=== PATIENT | male | born 1965 | race Hispanic/Latino ===

== ENCOUNTER 2017-09-27 12:40 | Inpatient (IN) | payer MEDICARE, MEDICAID ==
[~2017-09-27 12:40] MED LIST: Heparin 1,000 UNITS/ML VIAL ONE; ISOVUE-370 76%-LOCM 1 ML ONE
[2017-09-27] MEDS ORDERED: Dextrose 5% in Water 1,000 ML IV PRN (13:50)
[2017-09-27] MEDS ORDERED: Acetaminophen 650 MG Suppository PR PRN (13:50)
[2017-09-27] MEDS ORDERED: Acetaminophen 325 MG TAB PO PRN (13:50)
[2017-09-27] MEDS ORDERED: Dextrose 50% Abboject 50 ML SYRINGE SLOW IVP PRN (13:50)
[2017-09-27] MEDS ORDERED: Bisacodyl 5 MG TAB PO PRN (13:50)
[2017-09-27] MEDS ORDERED: RENALLY ADJUST ABX IVPB PRN (13:54)
[2017-09-27] MEDS ORDERED: Vancomycin HCl 1 GM in Premix Bag 1 BAG IVPB SCH (14:00)
[2017-09-27] MEDS ORDERED: HYDROcodone/Acetaminophen 5/325 mg Tablet PO PRN (14:31)
[2017-09-27 14:33] VITALS: BMI 44.1
[2017-09-27] MEDS ORDERED: Vancomycin HCl 2.5 GM in Sodium Chloride 0.9% 500 ML IVPB SCH (15:00)
--- NOTE | 2017-09-27 16:06 | HP ---
DATE OF ADMISSION: 09/27/2017 PRIMARY CARE PROVIDER: Edi Montoya M.D. CHIEF COMPLAINT: Skin wounds. HISTORY OF PRESENT ILLNESS: Mr. Sahni is a pleasant 52-year-old gentleman who was seen at [facility] on 09/27/2017 after he was sent to the hospital by [facility] . He has a history of chronic sacral and right ischial wounds. He was last hospitalized at this [facility] in 11/2014. Since then, he has been going to Wound Care Clinic at [facility]. He reports that over the last 3 days, he has been having fevers and chills as well as bilateral lower extremity pain. He was therefore advised to follow up with Infectious Disease Service. He was seen by Dr. Mendes in the clinic today and was advised inpatient hospitalization for intravenous antibiotics. REVIEW OF SYSTEMS: All other systems reviewed and found to be negative. PAST MEDICAL HISTORY: Diabetes mellitus type 2, spina bifida, morbid obesity, chronic bilateral isch ial wound, osteomyelitis, open debridement, recurrent urinary tract infection, hypertension, gastroes ophageal reflux disease, coronary artery disease, non-ST elevation myocardial infarction, colostomy. PSYCHIATRIC HISTORY: Anxiety and depression. PAST SURGICAL HISTORY: Abdominal hernia repair, multiple I and D for decubitus ulceration, bilateral below knee amputation, urethral dilatation, colostomy. FAMILY HISTORY: Significant for several family members with diabetes mellitus, coronary artery disea se and cancer. ALLERGIES: TRAMADOL and ROCEPHIN. SOCIAL HISTORY: He smokes 1 cigar a day. He reports occasional marijuana use. He denies any alcoho l use. CURRENT MEDICATIONS: These need to be clarified, but appear to include albuterol, Coreg, Plavix, Edgar rontin, glipizide, [place], metformin, Protonix, pravastatin, Zoloft and lorazepam. PHYSICAL EXAMINATION: GENERAL: Mr. Sahni is awake and alert, not in acute distress. VITAL SIGNS: Blood pressure is 124/75, pulse 68, respiratory rate 18 and oxygen saturation 95% on ro om air. Temperature is 99.2 degrees Fahrenheit. He is morbidly obese, with a BMI of 44. EYES: No scleral icterus. No conjunctival pallor. ENT: Moist mucosal membranes. No oropharyngeal erythema or exudates. NECK: Supple, nontender, trachea is midline. RESPIRATORY: Accessory muscles of breathing are not active. Chest wall movements are symmetric bila terally. LUNGS: Clear to auscultation without wheeze, rhonchi or crepitations. CARDIOVASCULAR: S1 and S2 are heard, regular. Peripheral pulses palpable. No carotid bruit, no per icardial rub. ABDOMEN: Soft, distended, nontender, bowel sounds are heard, no hepatomegaly, no splenomegaly. NEUROLOGIC: Cranial nerves II-XII intact. MUSCULOSKELETAL: Status post bilateral below knee amputation. SKIN: He has a sacral wound as well as a wound over the right ischium. Both wounds are foul smellin g and have purulent discharge. LYMPHATIC: No cervical lymphadenopathy. PSYCHIATRIC: Normal mood, normal affect. The patient is oriented to person, place and time. LABORATORY DATA: No labs have been drawn at this time. ASSESSMENT AND PLAN: Mr. Sahni is a pleasant 52-year-old gentleman who was seen at [facility] on 09/27/2017. His problem list includes: 1. Wound infection: He will be admitted to the hospital for management of wound infection. He will be started on broad spectrum antibiotics in the form of Zosyn and vancomycin. Pharmacy will be requ ested to adjust his dosage. We will note wound cultures. We will also request Wound Care consult as well as surgical consult. PICC line is also being ordered. 2. Diabetes mellitus: I will start Accu-Cheks and insulin sliding scale. 3. Hypertension: We will resume home medications once clarified, monitor vital signs and titrate an tihypertensives as needed. 4. Coronary artery disease: Appears to be stable. Many thanks for allowing me to participate in your patient's care. Please feel free to contact me wi th any questions or concerns. LEVEL OF RISK: Moderate. LEVEL OF COMPLEXITY: Moderate.
--- NOTE | 2017-09-27 16:17 | SPC ---
SONOGRAPHIC GUIDED LEFT UPPER EXTREMITY PICC 09/27/17 HISTORY: Infection. Need for jail antibiotics. FINDINGS: After explaining the procedure and answering all questions, the left upper extremity was prepped and draped in the usual sterile fashion. Sterile technique, buffered local anesthesia, sonographic guidan ce, and a 22 gauge needle were used to carefully access the left basilic vein. Standard technique was then used to place the tip of a 5 [place] single lumen PICC at the level of the right atrium. Cathete r was flushed and secured external. Patient tolerated the procedure well and was returned in unchange d condition. FLUORO TIME: 0.1 minute. IMPRESSION: Left upper extremity PICC is ready for use. POS: [facility]
[2017-09-27 16:28] LABS: #Eosinphils 0.1 thou/uL (0.0-0.7); #Lymphocytes 2.4 thou/uL (1.20-3.40); #Monocytes 0.7 thou/uL (0.11-0.59); #Neutrophils 12.3 thou/uL (1.40-6.50); %Basophils 0.3 % (0.0-1.0); %Eosinophils 0.4 % (0.0-10.0); %Lymphocytes 15.4 % (21.0-51.0); %Monocytes 4.8 % (0.0-10.0); %Neutrophils 79.1 % (42.0-75.0); Hemoglobin 14.5 g/dL (14.0-18.0); Mean Corpuscular HGB CONC 31.7 g/dL (32.0-36.0); Mean Corpuscular Hemoglobin 26.5 pg (27.0-31.0); Mean Corpuscular Volume 83.7 fL (78.0-98.0); Mean Platelet Volume 7.6 fL (7.4-10.4); Platelet Count 231 thou/uL (130-400); RBC Distribution Width 14.5 % (11.5-14.5); Red Blood Cell (RBC) Count 5.48 mill/uL (4.70-6.10); White Blood Cell (WBC) Count 15.6 thou/uL (4.8-10.8)
[2017-09-27] MEDS: HYDROcodone/Acetaminophen 10/325 mg Tablet PO PRN ×2 (16:28→21:49)
[2017-09-27 16:51] LABS: ALT (SGPT) 10 U/L (8-55); AST (SGOT) 11 U/L (5-34); Albumin 3.7 g/dL (3.5-5.0); Alkaline Phosphatase 84 U/L (40-150); Anion Gap 12 mmol/L (10-20); BUN (Urea Nitrogen) 9 mg/dL (8.4-25.7); Bilirubin, Total 0.4 mg/dL (0.2-1.2); Calc. Creatinine Clearance 236 mL/min (70-130); Calcium 8.7 mg/dL (7.8-10.44); Carbon Dioxide 22 mmol/L (22-29); Chloride 104 mmol/L (98-107); Estimated GFR-MDRD Greater than 90; Globulin 3.3 g/dL (2.4-3.5); Glucose 140 mg/dL (70-105); Potassium 3.8 mmol/L (3.5-5.1); Sodium 134 mmol/L (136-145)
[2017-09-27] MEDS ORDERED: Piperacillin/Tazobactam 4.5 GM in Sodium Chloride 0.9% 100 ML IVPB SCH (17:00)
[2017-09-27] MEDS ORDERED: Ondansetron HCl/PF 4 MG/2 ML Vial IVP PRN (21:28)
[2017-09-27] MEDS ORDERED: Ondansetron ODT 4 MG TAB PO PRN (21:28)
[2017-09-27] MEDS: Piperacillin/Tazobactam 4.5 GM in Sodium Chloride 0.9% 100 ML IVPB SCH (21:43)
--- NOTE | 2017-09-27 22:45 | CT ---
CT ABDOMEN AND PELVIS WITH CONTRAST: 09/27/17 HISTORY: Chronic right ischial osteomyelitis. Fever. COMPARISON: CT of 2015. FINDINGS: Mild atelectasis in the lung bases. No pericardial effusion. There are open posterior elements of the lumbar spine with bulging of the thecal sac posteriorly. There is decubitus ulcer over the sacrum wi th loss of volume of the coccyx. There is a large ulcer of the right ischium with sclerosis. Chronic remodeling of both femoral head with coxa magna deformity on the right. There is abnormal sclerosis of the posterior right acetabulum and ischium. Large bowel containing ventral hernia without evidence of obstruction. No dilated loops of large or s mall bowel. The liver, spleen, pancreas, gallbladder and kidneys are all unremarkable. Punctate calcu lisha inferior pole left kidney and interpolar right kidney. IMPRESSION: 1. Likely a component of spina bifida with open posterior elements of lower lumbar spine contain ing thecal sac. 2. Chronic osteomyelitis of the right ischium. There is also abnormal right hip joint effusion w hich may reflect a component of septic arthritis. 3. Punctate bilateral renal calculi. 4. Very large left paramidline bowel containing hernia. POS: [facility]
--- NOTE | 2017-09-27 23:11 | CON ---
DATE OF CONSULTATION: 09/27/2017 REASON FOR CONSULTATION: Fever, general malaise, anorexia, worsening appearance of right chronic isc hial wound, indwelling Tyler catheter. HISTORY OF PRESENT ILLNESS: This is a 52-year-old known to us from previous visits. Last time I saw him was in 11/2014 in this hospital with a history of spina bifida and multiple complications relate d to the above including neurogenic bladder requiring catheterization of urinary tract, decubitus ulc ers, bilateral BKAs, type 2 diabetes. The patient has had initial debridement and protracted IV anti microbial therapy in 2014 with an MRI showing osteomyelitis. After that he was lost to follow up, lo oks like he had been admitted to [facility] in the past. Over the past few months has had wound care at [facility] and for the past week developed a low-grade fever, chi lls, general malaise, anorexia, and worsening drainage from the right ischial wound. I saw him in th e clinic today referred by the Wound Care Center and decided to admit him for evaluation and manageme nt. No headaches, no visual symptoms, sore throat, odynophagia, dysphagia, no cough. No chest pain, no abdominal pain, no problems with his colostomy, still carries an indwelling Tyler catheter. PAST MEDICAL HISTORY: Spina bifida with paraplegia and complications including ischial decubitus ulc ers. The one on the left side healed, the one on the right still present with worsening changes, hansel ateral BKAs, neurogenic bladder with chronic indwelling Tyler, prior UTIs, colostomy for diversion to help ulcer healing. PAST SURGICAL HISTORY: Also includes abdominal hernia repair, debridement of decubitus ulcerations, below knee amputations, urethral dilation colostomy. MEDICATIONS: Currently on Tylenol, [place], Dulcolax, dextrose, Lovenox, glucagon, insulin, Zosyn, and vancomycin. FAMILY HISTORY: Type 2 diabetes. ALLERGIES: TRAMADOL. SOCIAL HISTORY: Former smoker, has been in nursing homes before. PHYSICAL EXAMINATION: VITAL SIGNS: T-max 99.2, blood pressure 115/68, pulse 63, respirations 16-18, and O2 sat 93% to 95%. SKIN: Shows the bilateral areas of decubitus ulceration, the one on the right side still deep, I wou ld say still with stage IV with palpable bone at the base. The left side is healed. The patient has an indwelling Tyler catheter in the colostomy. The BKA stumps are okay. The patient has a PICC santiago e in place left upper extremity. No lymphadenopathy. HEENT: Ocular movements conjugate. Oral cavity with still a few teeth remaining in place. NECK: Supple, jugular vein distention. LUNGS: Symmetric clear breath sounds. HEART: S1 and S2, regular rate. No S3 or S4. ABDOMEN: Soft, nondistended, nontender. NEUROLOGIC: Nonfocal. Cognitive function appears to be intact. LABORATORY DATA: White cell count 15.6, hemoglobin 14.5, platelets 231, and 79% neutrophils. Sodium 134, creatinine 0.68. Liver profile normal. Albumin 3.7. ASSESSMENT: Spina bifida with paraplegia complications related to spina bifida associated neurologic al dysfunction, neurogenic bladder with chronic indwelling Tyler catheter in right ischial decubitus ulcer with prior I&D, protracted antimicrobial therapy. DISCUSSION: Patient has been apparently managed elsewhere and we have lost contact him for the past 3 years. Now, he presents with either reexacerbation of a right ischial decubitus ulcer with complic ations including the possibility of osteomyelitis, abscess formation in the pelvic area. The other p ossibility would be an invasive UTI associated with a Tyler catheter. Complications of the chronic c atheterization including nephrolithiasis, bladder lithiasis hydronephrosis and so on. We will procee d with a pelvis CT scan, we will add the abdomen to it, add contrast and decide on further management according to results. Start broad spectrum coverage.
[2017-09-27] MEDS ORDERED: HYDROcodone/Acetaminophen 5/325 mg Tablet PO SCH (23:30)
[2017-09-28] MEDS ORDERED: Lorazepam 0.5 MG TAB PO SCH (01:30)
[2017-09-28] MEDS: Piperacillin/Tazobactam 4.5 GM in Sodium Chloride 0.9% 100 ML IVPB SCH ×3 (04:21→19:42)
[2017-09-28 04:45] LABS: #Basophils 0.1 thou/uL (0.0-0.2); #Eosinphils 0.1 thou/uL (0.0-0.7); #Lymphocytes 2.8 thou/uL (1.20-3.40); #Monocytes 0.6 thou/uL (0.11-0.59); #Neutrophils 6.9 thou/uL (1.40-6.50); %Basophils 0.5 % (0.0-1.0); %Eosinophils 1.1 % (0.0-10.0); %Lymphocytes 26.9 % (21.0-51.0); %Monocytes 5.9 % (0.0-10.0); %Neutrophils 65.6 % (42.0-75.0); Hemoglobin 13.9 g/dL (14.0-18.0); Mean Corpuscular HGB CONC 33.2 g/dL (32.0-36.0); Mean Corpuscular Hemoglobin 27.6 pg (27.0-31.0); Mean Corpuscular Volume 83.4 fL (78.0-98.0); Mean Platelet Volume 7.6 fL (7.4-10.4); Platelet Count 205 thou/uL (130-400); RBC Distribution Width 14.3 % (11.5-14.5); Red Blood Cell (RBC) Count 5.01 mill/uL (4.70-6.10); White Blood Cell (WBC) Count 10.5 thou/uL (4.8-10.8)
[2017-09-28 05:02] LABS: Anion Gap 9 mmol/L (10-20); BUN (Urea Nitrogen) 10 mg/dL (8.4-25.7); Calc. Creatinine Clearance 244 mL/min (70-130); Calcium 8.3 mg/dL (7.8-10.44); Carbon Dioxide 25 mmol/L (22-29); Chloride 105 mmol/L (98-107); Estimated GFR-MDRD Greater than 90; Glucose 136 mg/dL (70-105); Potassium 3.7 mmol/L (3.5-5.1); Sodium 135 mmol/L (136-145)
[2017-09-28] MEDS: Enoxaparin Sodium 40 MG/0.4 ML SYRINGE SC SCH (08:55)
[2017-09-28] MEDS: HYDROcodone/Acetaminophen 10/325 mg Tablet PO PRN ×2 (08:57→23:16)
--- NOTE | 2017-09-28 09:56 | PDOC.GSCN ---
Surgery Consult: HPI - Consult details Date: 09/28/17 Time: 09:30 Reason for consult: wound care History of present illness: Patient has history of chronic right ischial wound which was last debrided in 2014. Since then patient has had wound care in [place]. Patient was seen by Dr. Mendes outpatient and inpatient care was recommended. Past week patient has had fever, chills, increased wound drainage, not feeling well. Surgery Consult: ROS - Review of Systems All systems: 10 systems reviewed and no additional complaints unless stated below. Surgery Consult: PMH Source: patient Past Medical History: Spina bifida, DM2, chronic bilateral ischial wounds, osteomyelitis, recurrent UTI with indwelling catheter, CAD, NSTEMI, colostomy Past Surgical History: I&D for decubitus ulcers, bilateral BKA, colostomy, abdominal hernia repair, urethral dilatation - Past Family History Family history: reviewed and not pertinent - Past Social History Smoking Status: Current every day smoker (1 cigar daily) Alcohol Use: none Drug Use History: marijuana Surgery Consult: Exam - Vital signs Vital signs: Vital Signs - Most Recent Temp Pulse Resp BP Pulse Ox 97.5 F L 67 20 114/68 93 L 09/28/17 07:31 09/28/17 07:31 09/28/17 07:31 09/28/17 07:31 09/28/17 07:31 - Physical Exam General: no distress, well developed, obese Eye: normal ocular movement, PERRL Respiratory: normal expansion, normal respiratory effort Abdomen: non tender, soft, bowel sounds Integumentary: other (right decubitus ulcer) Musculoskeletal: other (bilateral BKA) Surgery Consult: Meds - Medications MAR Reviewed: Yes Medications: Current Medications Acetaminophen (Tylenol) 650 mg PO Q4H PRN PRN Reason: Headache/Fever or Pain Acetaminophen (Tylenol) 650 mg IA Q4H PRN PRN Reason: Headache/Fever or Pain Hydrocodone Bitart/Acetaminophen ([place] 10/325) 1 tab PO Q4H PRN PRN Reason: Severe Pain (7-10) Last Admin: 09/28/17 08:57 Dose: 1 tab Hydrocodone Bitart/Acetaminophen ([place] 5/325) 1 tab PO Q4H PRN PRN Reason: Moderate Pain (4-6) Bisacodyl (Dulcolax) 10 mg PO DAILYPRN PRN PRN Reason: Constipation Dextrose/Water (Dextrose 50%) 25 gm SLOW IVP PRN PRN PRN Reason: Hypoglycemia Enoxaparin Sodium (Lovenox) 40 mg SC 0900 [facility] Last Admin: 09/28/17 08:55 Dose: Not Given Glucagon (Glucagon) 1 mg IM PRN PRN PRN Reason: Hypoglycemia Dextrose/Water (D5w) 1,000 mls @ 0 mls/hr IV .Q0M PRN PRN Reason: Hypoglycemia Vancomycin HCl 2 gm/ Sodium (Chloride) 500 mls @ 250 mls/hr IVPB 0400,1600 [facility] Last Admin: 09/28/17 04:56 Dose: 500 mls Piperacillin Sod/Tazobactam (Sod 4.5 gm/ Sodium Chloride) 100 mls @ 200 mls/hr IVPB 0500,1300,2100 [facility] Last Admin: 09/28/17 04:21 Dose: 100 mls Insulin Human Lispro (Humalog) 0 units SC .MILD SLIDING SCALE PRN PRN Reason: Mild Correctional Scale Miscellaneous Medication (Pharmacy To Dose) 1 each IVPB PRN PRN PRN Reason: Pharmacy to dose - Allergies Allergies/Adverse Reactions: Allergies Allergy/AdvReac Type Severity Reaction Status Date / Time ceftriaxone [From Rocephin] Allergy Verified 09/27/17 14:34 tramadol Allergy Verified 06/25/13 21:00 BROCCOLI Allergy Uncoded 06/25/13 21:00 Surgery Consult: Results - Labs Result Diagrams: 09/28/17 04:34 09/28/17 04:34 Lab results: Laboratory Results WBC 10.5 thou/uL (4.8-10.8) 09/28/17 04:34 RBC 5.01 mill/uL (4.70-6.10) 09/28/17 04:34 Hgb 13.9 g/dL (14.0-18.0) L 09/28/17 04:34 Hct 41.8 % (42.0-52.0) L 09/28/17 04:34 MCV 83.4 fL (78.0-98.0) 09/28/17 04:34 MCH 27.6 pg (27.0-31.0) 09/28/17 04:34 MCHC 33.2 g/dL (32.0-36.0) 09/28/17 04:34 RDW 14.3 % (11.5-14.5) 09/28/17 04:34 Plt Count 205 thou/uL (130-400) 09/28/17 04:34 MPV 7.6 fL (7.4-10.4) 09/28/17 04:34 Neutrophils % 65.6 % (42.0-75.0) 09/28/17 04:34 Lymphocytes % 26.9 % (21.0-51.0) 09/28/17 04:34 Monocytes % 5.9 % (0.0-10.0) 09/28/17 04:34 Eosinophils % 1.1 % (0.0-10.0) 09/28/17 04:34 Basophils % 0.5 % (0.0-1.0) 09/28/17 04:34 Neutrophils # 6.9 thou/uL (1.40-6.50) H 09/28/17 04:34 Lymphocytes # 2.8 thou/uL (1.20-3.40) 09/28/17 04:34 Monocytes # 0.6 thou/uL (0.11-0.59) H 09/28/17 04:34 Eosinophils # 0.1 thou/uL (0.0-0.7) 09/28/17 04:34 Basophils # 0.1 thou/uL (0.0-0.2) 09/28/17 04:34 Sodium 135 mmol/L (136-145) L 09/28/17 04:34 Potassium 3.7 mmol/L (3.5-5.1) 09/28/17 04:34 Chloride 105 mmol/L (98-107) 09/28/17 04:34 Carbon Dioxide 25 mmol/L (22-29) 09/28/17 04:34 Anion Gap 9 mmol/L (10-20) L 09/28/17 04:34 BUN 10 mg/dL (8.4-25.7) 09/28/17 04:34 Creatinine 0.66 mg/dL (0.6-1.3) 09/28/17 04:34 Estimated GFR (MDRD) Greater than 90 09/28/17 04:34 Glucose 136 mg/dL (70-105) H 09/28/17 04:34 POC Glucose 120 mg/dL (70-110) H 09/28/17 04:11 Calcium 8.3 mg/dL (7.8-10.44) 09/28/17 04:34 Total Bilirubin 0.4 mg/dL (0.2-1.2) 09/27/17 16:03 AST 11 U/L (5-34) 09/27/17 16:03 ALT 10 U/L (8-55) 09/27/17 16:03 Alkaline Phosphatase 84 U/L (40-150) 09/27/17 16:03 Serum Total Protein 7.0 g/dL (6.0-8.3) 09/27/17 16:03 Albumin 3.7 g/dL (3.5-5.0) 09/27/17 16:03 Globulin 3.3 g/dL (2.4-3.5) 09/27/17 16:03 Albumin/Globulin Ratio 1.1 g/dL (1.2-2.2) L 09/27/17 16:03 Surgery Consult: A/P - Plan Plan: 52 year old male with history of chronic decubitus ulcers, bilateral BKA, spina bifida presents with worsening right ischial ulcer. Worsening despite outpatient therapy and now receiving IV broad spectrum antibiotics. Continue per Dr. Mendes recommendations. Wound care consulted. Patient would benefit from surgical intervention. Plan for I&D tomorrow. NPO after midnight. Patient was seen and examined by Dr. Pickard who formulated the plan as noted above.
[2017-09-28] MEDS ORDERED: Morphine 4 MG/ML Carpuject SLOW IVP PRN (10:50)
[2017-09-28] MEDS ORDERED: Morphine 4 MG/ML VIAL IV PRN (11:27)
--- NOTE | 2017-09-28 12:21 | PDOC.PN ---
- Subjective Encounter Start Date: 09/28/17 Encounter Start Time: 08:50 Patient seen and examined. No new complaints. No overnight events his pain is not controlled with current treatment - Objective Resuscitation Status: Resuscitation Status FULL:Full Resuscitation MAR Reviewed: Yes Vital Signs & Weight: Vital Signs (12 hours) Temp Pulse Resp BP Pulse Ox 09/28/17 11:31 98.2 F 61 20 101/63 93 L 09/28/17 08:00 97.5 F L 67 20 95 09/28/17 07:31 97.5 F L 67 20 114/68 93 L 09/28/17 04:08 97.9 F 58 L 16 105/68 93 L Weight Weight 290 lb Result Diagrams: 09/28/17 04:34 09/28/17 04:34 Additional Labs: Accuchecks 09/28/17 09/28/17 09/27/17 11:31 04:11 19:34 POC Glucose 150 H 120 H 205 H 09/27/17 16:32 POC Glucose 129 H Radiology Reviewed by me: Yes Phys Exam - Physical Examination Constitutional: NAD HEENT: PERRLA, moist MMs, sclera anicteric Neck: no JVD, supple Respiratory: no wheezing, no rales, no rhonchi Cardiovascular: RRR, no significant murmur, no rub Gastrointestinal: soft, non-tender, no distention, positive bowel sounds colostomy+, martin+, ventral hernia bilateral BKA Neurological: non-focal Lymphatic: no nodes Psychiatric: normal affect Skin: no rash, normal turgor Dx/Plan (1) Wound infection Code(s): T14.8XXA - OTHER INJURY OF UNSPECIFIED BODY REGION, INITIAL ENCOUNTER; L08.9 - LOCAL INFECTION OF THE SKIN AND SUBCUTANEOUS TISSUE, UNSP Status: Acute (2) Amputation of both lower extremities Code(s): S88.911A - COMPLETE TRAUMATIC AMPUTATION OF R LOW LEG, LEVEL UNSP, INIT ; S88.912A - COMPLETE TRAUMATIC AMPUTATION OF L LOW LEG, LEVEL UNSP, INIT Status: Chronic (3) Anxiety and depression Code(s): F41.9 - ANXIETY DISORDER, UNSPECIFIED; F32.9 - MAJOR DEPRESSIVE DISORDER, SINGLE EPISODE, UNSPECIFIED Status: Chronic (4) CAD (coronary artery disease) Code(s): I25.10 - ATHSCL HEART DISEASE OF [place] CORONARY ARTERY W/O ANG PCTRS Status: Chronic (5) Colostomy in place Code(s): Z93.3 - COLOSTOMY STATUS Status: Chronic (6) Diabetes type 2, controlled Code(s): E11.9 - TYPE 2 DIABETES MELLITUS WITHOUT COMPLICATIONS Status: Chronic (7) Morbid obesity with BMI of 40.0-44.9, adult Code(s): E66.01 - MORBID (SEVERE) OBESITY DUE TO EXCESS CALORIES; Z68.41 - BODY MASS INDEX (BMI) 40.0-44.9, ADULT Status: Chronic (8) Neurogenic bladder Code(s): N31.9 - NEUROMUSCULAR DYSFUNCTION OF BLADDER, UNSPECIFIED Status: Chronic (9) Osteomyelitis Code(s): M86.9 - OSTEOMYELITIS, UNSPECIFIED Status: Chronic Comment: right ischium (10) Spina bifida Code(s): Q05.9 - SPINA BIFIDA, UNSPECIFIED Status: Chronic - Plan cont current plan of care, continue antibiotics * medication reviewed as below * symptomatic treatment * add morphin for pain control * wound care * tomorrow plan for I & D * continue vancomycin and zosyn * ID and surgeon on case * home medication reconciled. Review of Systems - Review of Systems Eyes: negative: Pain, Vision Change, Conjunctivae Inflammation, Eyelid Inflammation, Redness, Other ENT: negative: Ear Pain, Ear Discharge, Nose Pain, Nose Discharge, Nose Congestion, Mouth Pain, Mouth Swelling, Throat Pain, Throat Swelling, Other Respiratory: negative: Cough, Dry, Shortness of Breath, Hemoptysis, SOB with Excertion, Pleuritic Pain, Sputum, Wheezing Cardiovascular: negative: chest pain, palpitations, orthopnea, paroxysmal nocturnal dyspnea, edema, light headedness, other Gastrointestinal: negative: Nausea, Vomiting, Abdominal Pain, Diarrhea, Constipation, Melena, Hematochezia, Other Genitourinary: negative: Dysuria, Frequency, Incontinence, Hematuria, Retention , Other Skin: negative: Rash, Lesions, Guy, Bruising, Other - Medications/Allergies Allergies/Adverse Reactions: Allergies Allergy/AdvReac Type Severity Reaction Status Date / Time ceftriaxone [From Rocephin] Allergy Verified 09/27/17 14:34 tramadol Allergy Verified 06/25/13 21:00 BROCCOLI Allergy Uncoded 06/25/13 21:00 Medications: Current Medications Acetaminophen (Tylenol) 650 mg PO Q4H PRN PRN Reason: Headache/Fever or Pain Acetaminophen (Tylenol) 650 mg DC Q4H PRN PRN Reason: Headache/Fever or Pain Hydrocodone Bitart/Acetaminophen ([place] 10/325) 1 tab PO Q4H PRN PRN Reason: Severe Pain (7-10) Last Admin: 09/28/17 08:57 Dose: 1 tab Hydrocodone Bitart/Acetaminophen ([place] 5/325) 1 tab PO Q4H PRN PRN Reason: Moderate Pain (4-6) Hydrocodone Bitart/Acetaminophen ([place] 10/325) 2 tab PO Q6H PRN PRN Reason: Moderate to Severe Pain (6-10) Bisacodyl (Dulcolax) 10 mg PO DAILYPRN PRN PRN Reason: Constipation Carvedilol (Coreg) 3.125 mg PO BID [facility] Clopidogrel Bisulfate (Plavix) 75 mg PO DAILY [facility] Dextrose/Water (Dextrose 50%) 25 gm SLOW IVP PRN PRN PRN Reason: Hypoglycemia Docusate Calcium (Surfak) 240 mg PO BID [facility] Enoxaparin Sodium (Lovenox) 40 mg SC 0900 [facility] Last Admin: 09/28/17 08:55 Dose: Not Given Gabapentin (Neurontin) 300 mg PO BID [facility] Glipizide (Glucotrol) 5 mg PO BID-AC [facility] Glucagon (Glucagon) 1 mg IM PRN PRN PRN Reason: Hypoglycemia Dextrose/Water (D5w) 1,000 mls @ 0 mls/hr IV .Q0M PRN PRN Reason: Hypoglycemia Vancomycin HCl 2 gm/ Sodium (Chloride) 500 mls @ 250 mls/hr IVPB 0400,1600 [facility] Last Admin: 09/28/17 04:56 Dose: 500 mls Piperacillin Sod/Tazobactam (Sod 4.5 gm/ Sodium Chloride) 100 mls @ 200 mls/hr IVPB 0500,1300,2100 [facility] Last Admin: 09/28/17 04:21 Dose: 100 mls Insulin Glargine 10 units/ (Miscellaneous Medication) 0.1 mls @ 0 mls/hr SC BID [facility] Insulin Human Lispro (Humalog) 0 units SC .MILD SLIDING SCALE PRN PRN Reason: Mild Correctional Scale Lorazepam (Ativan) 1 mg PO TID [facility] Miscellaneous Medication (Pharmacy To Dose) 1 each IVPB PRN PRN PRN Reason: Pharmacy to dose Morphine Sulfate (Morphine) 4 mg SLOW IVP Q4H PRN PRN Reason: Pain Last Admin: 09/28/17 11:50 Dose: 4 mg Pantoprazole Sodium (Protonix) 40 mg PO DAILY [facility] Saccharomyces Boulardii (Florastor) 250 mg PO DAILY [facility] Sertraline HCl (Zoloft) 100 mg PO HS [facility]
--- NOTE | 2017-09-28 13:46 | PRG ---
DATE OF SERVICE: 09/28/2017 SUBJECTIVE: Feel a little better. No headaches. No shortness of breath or abdominal pain. OBJECTIVE: VITAL SIGNS: Temperature max 98.2-99.2, blood pressure 101/63, pulse 61, and O2 saturation to 93% to 95%. GENERAL: Appears no distress. LUNGS: Clear. CARDIOVASCULAR: S1 and S2, regular rate. ABDOMEN: Soft. Colostomy appears well. PELVIS: Some pain on range of motion of the right hip, the wound is about the same. LABORATORY DATA: White cell count is 15.6, down to 10.5, hemoglobin 13.9, platelets 205. Neutrophil percentage down from 79% to 65%. Chemistry with a sodium of 135, creatinine 0.66. Liver profile no rmal. Microbiology with group B strep from the ulcer, two other organisms as well. Urine culture gr am negative kin. For some reason urinalysis was not done. Abdomen and pelvis CT shows large ulcer of the right ischium with sclerosis, chronic remodeling of th e femoral head. Abnormal right hip joint effusion, which may reflect septic arthritis. ASSESSMENT AND DISCUSSION: Spina bifida with chronic paraplegia with neurogenic bladder, indwelling Tyler catheter, and chronic bilateral decubitus ulcers with the one on the right side more refractory with previous surgical debridements protracted antimicrobial therapy. Now, patient presents with ex acerbation of inflammatory process either secondary to an invasive urinary tract infection or from ex acerbation of the stage IV right ischial decubitus ulcer, possibility of infection of the right hip i s considered as well. At this point, we will request guided aspirate of the right hip for cultures a nd continue antimicrobial therapy. After surgical evaluation, then we will decide if the right hip n eed to be washed or just treated with antimicrobials for a protracted period of time, as well as the decubitus ulcer associated ischial osteomyelitis. The ischial findings could be residual from the pr evious infections.
[2017-09-28] MEDS: glipiZIDE 5 MG TAB PO SCH (15:49)
[2017-09-28] MEDS: Lorazepam 1 MG TAB PO SCH ×2 (15:49→19:41)
--- NOTE | 2017-09-28 16:10 | RAD ---
FLUOROSCOPIC GUIDED RIGHT HIP JOINT ASPIRATION 09/28/17 HISTORY: Abnormal appearance of right hip joint on CT exam on 09/27/17. Hip aspiration was requested. Patient h as fever. FLUOROSCOPY: Total fluoroscopy time is 0.5 minutes. Total dose of 11.61 Gy*cm2. TECHNIQUE: After informed consent was obtained, the patient was placed on the fluoroscopy table in the supine po sition. An area was marked overlying the region of the right femoral neck. The area was meticulously prepped and draped in the usual sterile fashion. Skin and subcutaneous tissues were infiltrated with buffered 1% lidocaine for local anesthesia. A 22 gauge spinal needle was then advanced to the superio r aspect of the right hip joint in region of abnormality on CT exam. However, no joint fluid was able to be aspirated. Needle was then redirected and positioned at the femoral head and neck junction at the level of the central aspect of the femoral neck. A scant amount of fluid was able to be aspirate d. No additional fluid was able to be aspirated. An approximately 1 mL of normal saline was injected into the joint space and fluid was then aspirated. Each specimen was sent for labs. Inner stylet was replaced. The needle was removed. Hemostasis was achieved with direct pressure. Patient tolerated the procedure well and without immediate complication. IMPRESSION: Right hip joint aspiration utilizing fluoroscopic guidance yielded only scant amount of fluid. Pathol ant is current pending. POS: DOMINGO
[2017-09-28] MEDS: HumaLOG 300 UNITS/3 ML VIAL SC PRN (17:45)
[2017-09-28] MEDS: Docusate Calcium (SURFAK) 240 MG CAP PO SCH (19:41)
[2017-09-28] MEDS: Gabapentin 300 MG CAP PO SCH (19:41)
[2017-09-28] MEDS: Carvedilol 3.125 MG TAB PO SCH (19:42)
[2017-09-28] MEDS: Insulin Glargine 10 UNITS in Pre-Filled Syringe 1 EACH SC SCH (19:47)
[2017-09-29 03:54] LABS: Vancomycin, Trough 17.4 ug/mL
[2017-09-29] MEDS: Piperacillin/Tazobactam 4.5 GM in Sodium Chloride 0.9% 100 ML IVPB SCH ×3 (04:37→20:21)
[2017-09-29] MEDS: HYDROcodone/Acetaminophen 10/325 mg Tablet PO PRN ×2 (04:39→23:41)
[2017-09-29] MEDS: glipiZIDE 5 MG TAB PO SCH ×2 (07:40→16:57)
[2017-09-29] MEDS: Carvedilol 3.125 MG TAB PO SCH ×2 (08:49→20:20)
[2017-09-29] MEDS: Enoxaparin Sodium 40 MG/0.4 ML SYRINGE SC SCH (08:50)
[2017-09-29] MEDS: Insulin Glargine 10 UNITS in Pre-Filled Syringe 1 EACH SC SCH ×2 (08:50→20:20)
[2017-09-29] MEDS: Docusate Calcium (SURFAK) 240 MG CAP PO SCH ×2 (08:50→20:20)
[2017-09-29] MEDS: Gabapentin 300 MG CAP PO SCH ×2 (08:50→20:20)
[2017-09-29] MEDS: Clopidogrel Bisulfate 75 MG TAB PO SCH (08:50)
[2017-09-29] MEDS: Lorazepam 1 MG TAB PO SCH ×3 (08:51→20:20)
[2017-09-29] MEDS: Saccharomyces boulardii 250 MG CAP PO SCH (08:51)
--- NOTE | 2017-09-29 10:17 | PDOC.PN ---
- Subjective Encounter Start Date: 09/29/17 Encounter Start Time: 08:50 Patient seen and examined. No new complaints. No overnight events pain is controlled with current pain regimen - Objective Resuscitation Status: Resuscitation Status FULL:Full Resuscitation MAR Reviewed: Yes Vital Signs & Weight: Vital Signs (12 hours) Temp Pulse Resp BP Pulse Ox 09/29/17 07:44 97.8 F 55 L 18 101/61 93 L 09/29/17 05:22 98 F 58 L 18 95/59 L 93 L Weight Admit Weight 290 lb Weight 290 lb I&O: 09/28/17 09/29/17 09/30/17 06:59 06:59 06:59 Intake Total 700 Output Total 1400 Balance -700 Result Diagrams: 09/28/17 04:34 09/28/17 04:34 Additional Labs: Accuchecks 09/29/17 09/28/17 09/28/17 05:37 19:47 16:39 POC Glucose 104 121 H 205 H 09/28/17 11:31 POC Glucose 150 H Phys Exam - Physical Examination Constitutional: NAD HEENT: PERRLA, moist MMs, sclera anicteric Neck: no JVD, supple Respiratory: no wheezing, no rales, no rhonchi Cardiovascular: RRR, no significant murmur, no rub Gastrointestinal: soft, non-tender, no distention, positive bowel sounds colostomy+, ventral hernia+, martin+ bilateral BKA Neurological: moves all 4 limbs Lymphatic: no nodes Psychiatric: normal affect, A&O x 3 Skin: no rash, normal turgor Dx/Plan (1) Wound infection Code(s): T14.8XXA - OTHER INJURY OF UNSPECIFIED BODY REGION, INITIAL ENCOUNTER; L08.9 - LOCAL INFECTION OF THE SKIN AND SUBCUTANEOUS TISSUE, UNSP Status: Acute (2) Amputation of both lower extremities Code(s): S88.911A - COMPLETE TRAUMATIC AMPUTATION OF R LOW LEG, LEVEL UNSP, INIT ; S88.912A - COMPLETE TRAUMATIC AMPUTATION OF L LOW LEG, LEVEL UNSP, INIT Status: Chronic (3) Anxiety and depression Code(s): F41.9 - ANXIETY DISORDER, UNSPECIFIED; F32.9 - MAJOR DEPRESSIVE DISORDER, SINGLE EPISODE, UNSPECIFIED Status: Chronic (4) CAD (coronary artery disease) Code(s): I25.10 - ATHSCL HEART DISEASE OF [place] CORONARY ARTERY W/O ANG PCTRS Status: Chronic (5) Colostomy in place Code(s): Z93.3 - COLOSTOMY STATUS Status: Chronic (6) Diabetes type 2, controlled Code(s): E11.9 - TYPE 2 DIABETES MELLITUS WITHOUT COMPLICATIONS Status: Chronic (7) Morbid obesity with BMI of 40.0-44.9, adult Code(s): E66.01 - MORBID (SEVERE) OBESITY DUE TO EXCESS CALORIES; Z68.41 - BODY MASS INDEX (BMI) 40.0-44.9, ADULT Status: Chronic (8) Neurogenic bladder Code(s): N31.9 - NEUROMUSCULAR DYSFUNCTION OF BLADDER, UNSPECIFIED Status: Chronic (9) Osteomyelitis Code(s): M86.9 - OSTEOMYELITIS, UNSPECIFIED Status: Chronic Comment: right ischium (10) Spina bifida Code(s): Q05.9 - SPINA BIFIDA, UNSPECIFIED Status: Chronic (11) UTI (urinary tract infection) due to urinary indwelling catheter Code(s): T83.511A - I/I REACT D/T INDWELLING URETHRAL CATHETER, INIT; N39.0 - URINARY TRACT INFECTION, SITE NOT SPECIFIED Status: Acute - Plan cont current plan of care, continue antibiotics * continue vancomycin and zosyn * today plan for surgical debridement as per surgeon * pain controlled * wound care * final antibiotics will defer to ID team. Review of Systems - Review of Systems Eyes: negative: Pain, Vision Change, Conjunctivae Inflammation, Eyelid Inflammation, Redness, Other ENT: negative: Ear Pain, Ear Discharge, Nose Pain, Nose Discharge, Nose Congestion, Mouth Pain, Mouth Swelling, Throat Pain, Throat Swelling, Other Respiratory: negative: Cough, Dry, Shortness of Breath, Hemoptysis, SOB with Excertion, Pleuritic Pain, Sputum, Wheezing Cardiovascular: negative: chest pain, palpitations, orthopnea, paroxysmal nocturnal dyspnea, edema, light headedness, other Gastrointestinal: negative: Nausea, Vomiting, Abdominal Pain, Diarrhea, Constipation, Melena, Hematochezia, Other Genitourinary: negative: Dysuria, Frequency, Incontinence, Hematuria, Retention , Other Musculoskeletal: negative: Neck Pain, Shoulder Pain, Arm Pain, Back Pain, Hand Pain, Leg Pain, Foot Pain, Other - Medications/Allergies Allergies/Adverse Reactions: Allergies Allergy/AdvReac Type Severity Reaction Status Date / Time ceftriaxone [From Rocephin] Allergy Verified 09/27/17 14:34 tramadol Allergy Verified 06/25/13 21:00 BROCCOLI Allergy Uncoded 06/25/13 21:00 Medications: Current Medications Acetaminophen (Tylenol) 650 mg PO Q4H PRN PRN Reason: Headache/Fever or Pain Acetaminophen (Tylenol) 650 mg UT Q4H PRN PRN Reason: Headache/Fever or Pain Hydrocodone Bitart/Acetaminophen ([place] 10/325) 1 tab PO Q4H PRN PRN Reason: Severe Pain (7-10) Last Admin: 09/28/17 08:57 Dose: 1 tab Hydrocodone Bitart/Acetaminophen ([place] 5/325) 1 tab PO Q4H PRN PRN Reason: Moderate Pain (4-6) Hydrocodone Bitart/Acetaminophen ([place] 10/325) 2 tab PO Q6H PRN PRN Reason: Moderate to Severe Pain (6-10) Last Admin: 09/29/17 04:39 Dose: 2 tab Bisacodyl (Dulcolax) 10 mg PO DAILYPRN PRN PRN Reason: Constipation Carvedilol (Coreg) 3.125 mg PO BID [facility] Last Admin: 09/29/17 08:49 Dose: Not Given Clopidogrel Bisulfate (Plavix) 75 mg PO DAILY [facility] Last Admin: 09/29/17 08:50 Dose: Not Given Dextrose/Water (Dextrose 50%) 25 gm SLOW IVP PRN PRN PRN Reason: Hypoglycemia Docusate Calcium (Surfak) 240 mg PO BID [facility] Last Admin: 09/29/17 08:50 Dose: Not Given Enoxaparin Sodium (Lovenox) 40 mg SC 0900 [facility] Last Admin: 09/29/17 08:50 Dose: Not Given Gabapentin (Neurontin) 300 mg PO BID [facility] Last Admin: 09/29/17 08:50 Dose: Not Given Glipizide (Glucotrol) 5 mg PO BID-AC [facility] Last Admin: 09/29/17 07:40 Dose: Not Given Glucagon (Glucagon) 1 mg IM PRN PRN PRN Reason: Hypoglycemia Dextrose/Water (D5w) 1,000 mls @ 0 mls/hr IV .Q0M PRN PRN Reason: Hypoglycemia Vancomycin HCl 2 gm/ Sodium (Chloride) 500 mls @ 250 mls/hr IVPB 0400,1600 [facility] Last Admin: 09/29/17 05:11 Dose: 500 mls Piperacillin Sod/Tazobactam (Sod 4.5 gm/ Sodium Chloride) 100 mls @ 200 mls/hr IVPB 0500,1300,2100 [facility] Last Admin: 09/29/17 04:37 Dose: 100 mls Insulin Glargine 10 units/ (Miscellaneous Medication) 0.1 mls @ 0 mls/hr SC BID [facility] Last Admin: 09/29/17 08:50 Dose: Not Given Insulin Human Lispro (Humalog) 0 units SC .MILD SLIDING SCALE PRN PRN Reason: Mild Correctional Scale Last Admin: 09/28/17 17:45 Dose: 3 unit Lorazepam (Ativan) 1 mg PO TID [facility] Last Admin: 09/29/17 08:51 Dose: Not Given Miscellaneous Medication (Pharmacy To Dose) 1 each IVPB PRN PRN PRN Reason: Pharmacy to dose Morphine Sulfate (Morphine) 4 mg SLOW IVP Q4H PRN PRN Reason: Pain Last Admin: 09/29/17 08:46 Dose: 4 mg Pantoprazole Sodium (Protonix) 40 mg PO DAILY [facility] Last Admin: 09/29/17 08:51 Dose: Not Given Saccharomyces Boulardii (Florastor) 250 mg PO DAILY [facility] Last Admin: 09/29/17 08:51 Dose: Not Given Sertraline HCl (Zoloft) 100 mg PO HS [facility] Last Admin: 09/28/17 19:41 Dose: 100 mg
[2017-09-29] MEDS ORDERED: PROPOFOL 200 MG/20 ML VIAL ONE (11:20)
[2017-09-29] MEDS ORDERED: Ondansetron HCl/PF 4 MG/2 ML Vial ONE (11:20)
[2017-09-29] MEDS ORDERED: Lidocaine 1% PF 5 ML VIAL ONE (11:20)
[2017-09-29] MEDS ORDERED: Glycopyrrolate 0.2 MG/ML 5 ML SYRINGE ONE (11:20)
[2017-09-29] MEDS ORDERED: Fentanyl 100 MCG/2 ML VIAL ONE ×3 (11:55→13:29)
--- NOTE | 2017-09-29 13:19 | OP ---
DATE OF PROCEDURE: 09/29/2017 PREOPERATIVE DIAGNOSES: 1. History of spina bifida status post-colostomy. 2. Morbid obesity. 3. Sacral and bilateral gluteal fold decubitus ulcer. POSTOPERATIVE DIAGNOSES: 1. History of spina bifida status post-colostomy. 2. Morbid obesity. 3. Sacral and bilateral gluteal fold decubitus ulcer. PROCEDURES PERFORMED: 1. Examination under anesthesia. 2. Placement of wet to dry dressing. SURGEON: Marvin Pickard D.O. ANESTHESIA: General endotracheal. ESTIMATED BLOOD LOSS: None. INDICATIONS FOR PROCEDURE: This is a 52-year-old morbidly obese man with history of diabetes mellitu s and spina bifida. The patient is status post colostomy. He has a longstanding chronic wound infec tion in the sacrum and bilateral gluteal fold. Examined is at bedside and due to patient's body habi tus and difficulty with positioning, the patient was brought to the operating room for examination un claudine anesthesia for possible excisional debridement of the decubitus ulcers. FINDINGS: Consistent with a granulating wound with no necrosis or purulence. The sacral wound is sh allow with good granulation base. The bilateral gluteal fold wound tunnels; however, the base is als o clean and no gross purulence. DESCRIPTION OF PROCEDURE: Informed consent obtained from the patient, who was brought to the operati ng room and placed in supine position. General anesthesia was initiated, following which the patient was placed in a lateral recumbent position. I examined both wounds. The sacral wound measures 5 cm x 7 cm with a 1 cm depth. The base is 100% granulated. No gross purulence noted. The bilateral gl uteal fold wound tunnels to approximately 8 cm, although the wound base on examination did not have a ny gross purulence or necrosis. Both wounds were individually packed with saline saturated Kerlix. Mepilex was applied over this. The patient tolerated this procedure without any apparent complicatio n and was returned to recovery room in satisfactory condition.
[2017-09-29] MEDS ORDERED: Promethazine HCl 25 MG/ML VIAL IM PRN (13:24)
[2017-09-29] MEDS ORDERED: Ondansetron HCl/PF 4 MG/2 ML Vial IVP PRN (13:24)
[2017-09-29] MEDS ORDERED: Promethazine HCl 25 MG/ML VIAL SLOW IVP PRN (13:24)
--- NOTE | 2017-09-29 22:32 | PRG ---
DATE OF SERVICE: 09/29/2017 SUBJECTIVE: Feeling better, but his appetite is back. No respiratory symptoms. PHYSICAL EXAMINATION: VITAL SIGNS: Normal. GENERAL: He is afebrile, awake, alert, oriented. LUNGS: Clear. HEART: S1, S2, regular rate. ABDOMEN: Soft, apparently did not have anything for debridement. LABORATORY DATA: White cell count down to 10.5, hemoglobin normal. Chemistry is unremarkable except for mild hyponatremia. Cultures grew B Strep and gram negative kin, has serratia from and uri ne culture broadly susceptible. ASSESSMENT AND DISCUSSION: Spina bifida, chronic paraplegia, neurogenic bladder, indwelling Tyler ca theter, chronic bilateral decubitus ulcer with exacerbation of drainage on the right side with pain i n the inflammatory process exacerbation. The plan is to continue antimicrobial therapy with Zosyn, I nvanz or meropenem. The disposition will depend on casework supervisor's decision as to what his options wo uld be in terms of a swing bed or rehabilitation/fpc.
[2017-09-30] MEDS: Piperacillin/Tazobactam 4.5 GM in Sodium Chloride 0.9% 100 ML IVPB SCH ×3 (04:01→20:32)
[2017-09-30] MEDS: Insulin Glargine 10 UNITS in Pre-Filled Syringe 1 EACH SC SCH ×2 (09:24→20:35)
[2017-09-30] MEDS: Carvedilol 3.125 MG TAB PO SCH ×2 (09:25→20:30)
[2017-09-30] MEDS: Docusate Calcium (SURFAK) 240 MG CAP PO SCH (09:25)
[2017-09-30] MEDS: Enoxaparin Sodium 40 MG/0.4 ML SYRINGE SC SCH (09:25)
[2017-09-30] MEDS: glipiZIDE 5 MG TAB PO SCH ×2 (09:25→16:45)
[2017-09-30] MEDS: Gabapentin 300 MG CAP PO SCH ×2 (09:25→20:31)
[2017-09-30] MEDS: Saccharomyces boulardii 250 MG CAP PO SCH (09:25)
[2017-09-30] MEDS: Lorazepam 1 MG TAB PO SCH ×3 (09:26→20:31)
[2017-09-30] MEDS: Clopidogrel Bisulfate 75 MG TAB PO SCH (09:26)
[2017-09-30] MEDS: HumaLOG 300 UNITS/3 ML VIAL SC PRN (13:06)
[2017-09-30] MEDS: HYDROcodone/Acetaminophen 10/325 mg Tablet PO PRN ×2 (13:11→20:31)
--- NOTE | 2017-09-30 18:01 | PDOC.PN ---
- Subjective Encounter Start Date: 09/30/17 Encounter Start Time: 11:00 Patient seen and examined for wound infection. No fever/chills. No new complaints. No overnight events - Objective Resuscitation Status: Resuscitation Status FULL:Full Resuscitation MAR Reviewed: Yes Vital Signs & Weight: Vital Signs (12 hours) Temp Pulse Resp BP Pulse Ox 09/30/17 16:00 98.6 F 57 L 18 115/64 92 L 09/30/17 11:12 98.1 F 60 16 104/63 95 09/30/17 09:48 98.1 F 58 L 16 98 09/30/17 07:52 98.1 F 58 L 16 117/68 98 Weight Admit Weight 290 lb Weight 290 lb I&O: 09/29/17 09/30/17 10/01/17 06:59 06:59 06:59 Intake Total 700 680 860 Output Total 1400 1999 1400 Balance -700 -1320 -540 Result Diagrams: 09/28/17 04:34 09/28/17 04:34 Additional Labs: Accuchecks 09/30/17 09/30/17 09/30/17 16:12 11:11 04:53 POC Glucose 96 164 H 90 09/29/17 20:02 POC Glucose 153 H Phys Exam - Physical Examination Constitutional: NAD Respiratory: no wheezing, no rhonchi Cardiovascular: RRR, no rub Gastrointestinal: soft, non-tender, positive bowel sounds Neurological: moves all 4 limbs Dx/Plan - Plan DVT proph w/lovenox IMPRESSION: 1. Infected pressure ulcer 2. Morbid Obesity BMI 44.1 3. Chronic paraplegia/Spina bifida 4. HTN 5. DM2 - on Sliding scale/Glipizide 6. Other issues per previous notes PLAN: Cont Zosyn Cont Wound care SNF Eval in progress AM labs Treat constipation Cont current meds as below Review of Systems - Review of Systems Respiratory: negative: Cough, Dry, Shortness of Breath, Hemoptysis, SOB with Excertion, Pleuritic Pain, Sputum, Wheezing Cardiovascular: negative: chest pain, palpitations, orthopnea, paroxysmal nocturnal dyspnea, edema, light headedness, other Gastrointestinal: Constipation. negative: Nausea, Vomiting, Abdominal Pain, Diarrhea, Melena, Hematochezia, Other - Medications/Allergies Allergies/Adverse Reactions: Allergies Allergy/AdvReac Type Severity Reaction Status Date / Time ceftriaxone [From Rocephin] Allergy Verified 09/27/17 14:34 tramadol Allergy Verified 06/25/13 21:00 BROCCOLI Allergy Uncoded 06/25/13 21:00 Medications: Current Medications Acetaminophen (Tylenol) 650 mg PO Q4H PRN PRN Reason: Headache/Fever or Pain Acetaminophen (Tylenol) 650 mg ND Q4H PRN PRN Reason: Headache/Fever or Pain Hydrocodone Bitart/Acetaminophen ([place] 10/325) 1 tab PO Q4H PRN PRN Reason: Severe Pain (7-10) Last Admin: 09/28/17 08:57 Dose: 1 tab Hydrocodone Bitart/Acetaminophen ([place] 5/325) 1 tab PO Q4H PRN PRN Reason: Moderate Pain (4-6) Hydrocodone Bitart/Acetaminophen ([place] 10/325) 2 tab PO Q6H PRN PRN Reason: Moderate to Severe Pain (6-10) Last Admin: 09/30/17 13:11 Dose: 2 tab Bisacodyl (Dulcolax) 10 mg PO DAILYPRN PRN PRN Reason: Constipation Carvedilol (Coreg) 3.125 mg PO BID [facility] Last Admin: 09/30/17 09:25 Dose: 3.125 mg Clopidogrel Bisulfate (Plavix) 75 mg PO DAILY [facility] Last Admin: 09/30/17 09:26 Dose: 75 mg Dextrose/Water (Dextrose 50%) 25 gm SLOW IVP PRN PRN PRN Reason: Hypoglycemia Docusate Calcium (Surfak) 240 mg PO BID [facility] Last Admin: 09/30/17 09:25 Dose: 240 mg Enoxaparin Sodium (Lovenox) 40 mg SC 0900 [facility] Last Admin: 09/30/17 09:25 Dose: 40 mg Gabapentin (Neurontin) 300 mg PO BID [facility] Last Admin: 09/30/17 09:25 Dose: 300 mg Glipizide (Glucotrol) 5 mg PO BID-AC [facility] Last Admin: 09/30/17 16:45 Dose: 5 mg Glucagon (Glucagon) 1 mg IM PRN PRN PRN Reason: Hypoglycemia Dextrose/Water (D5w) 1,000 mls @ 0 mls/hr IV .Q0M PRN PRN Reason: Hypoglycemia Piperacillin Sod/Tazobactam (Sod 4.5 gm/ Sodium Chloride) 100 mls @ 200 mls/hr IVPB 0500,1300,2100 [facility] Last Admin: 09/30/17 13:05 Dose: 100 mls Insulin Glargine 10 units/ (Miscellaneous Medication) 0.1 mls @ 0 mls/hr SC BID [facility] Last Admin: 09/30/17 09:24 Dose: 0.1 mls Insulin Human Lispro (Humalog) 0 units SC .MILD SLIDING SCALE PRN PRN Reason: Mild Correctional Scale Last Admin: 09/30/17 13:06 Dose: 2 unit Lorazepam (Ativan) 1 mg PO TID [facility] Last Admin: 09/30/17 14:20 Dose: 1 mg Miscellaneous Medication (Pharmacy To Dose) 1 each IVPB PRN PRN PRN Reason: Pharmacy to dose Morphine Sulfate (Morphine) 4 mg SLOW IVP Q4H PRN PRN Reason: Pain Last Admin: 09/30/17 15:24 Dose: 4 mg Pantoprazole Sodium (Protonix) 40 mg PO DAILY [facility] Last Admin: 09/30/17 09:25 Dose: 40 mg Saccharomyces Boulardii (Florastor) 250 mg PO DAILY [facility] Last Admin: 09/30/17 09:25 Dose: 250 mg Sertraline HCl (Zoloft) 100 mg PO HS [facility] Last Admin: 09/29/17 20:20 Dose: 100 mg
[2017-09-30] MEDS: Senokot S 8.6-50 MG TAB PO SCH (20:31)
[2017-10-01] MEDS: HYDROcodone/Acetaminophen 10/325 mg Tablet PO PRN ×3 (02:43→22:53)
[2017-10-01 05:17] LABS: #Eosinphils 0.2 thou/uL (0.0-0.7); #Lymphocytes 2.2 thou/uL (1.20-3.40); #Monocytes 0.4 thou/uL (0.11-0.59); #Neutrophils 4.6 thou/uL (1.40-6.50); %Basophils 0.5 % (0.0-1.0); %Lymphocytes 29.2 % (21.0-51.0); %Monocytes 5.4 % (0.0-10.0); %Neutrophils 61.9 % (42.0-75.0); Hemoglobin 14.3 g/dL (14.0-18.0); Mean Corpuscular HGB CONC 33.2 g/dL (32.0-36.0); Mean Corpuscular Hemoglobin 27.9 pg (27.0-31.0); Mean Platelet Volume 7.7 fL (7.4-10.4); Platelet Count 167 thou/uL (130-400); RBC Distribution Width 14.5 % (11.5-14.5); Red Blood Cell (RBC) Count 5.11 mill/uL (4.70-6.10); White Blood Cell (WBC) Count 7.4 thou/uL (4.8-10.8)
[2017-10-01] MEDS: Piperacillin/Tazobactam 4.5 GM in Sodium Chloride 0.9% 100 ML IVPB SCH ×3 (05:50→20:01)
[2017-10-01 06:15] LABS: Calcium 9.1 mg/dL (7.8-10.44); Chloride 104 mmol/L (98-107); Potassium 3.9 mmol/L (3.5-5.1); Sodium 135 mmol/L (136-145)
[2017-10-01 06:16] LABS: Glucose 131 mg/dL (70-105)
[2017-10-01 06:17] LABS: Anion Gap 10 mmol/L (10-20); Carbon Dioxide 25 mmol/L (22-29)
[2017-10-01 06:19] LABS: Calc. Creatinine Clearance 217 mL/min (70-130); Estimated GFR-MDRD Greater than 90
[2017-10-01 06:20] LABS: BUN (Urea Nitrogen) 7 mg/dL (8.4-25.7)
[2017-10-01] MEDS: glipiZIDE 5 MG TAB PO SCH ×2 (08:00→15:44)
[2017-10-01] MEDS: Clopidogrel Bisulfate 75 MG TAB PO SCH (09:03)
[2017-10-01] MEDS: Saccharomyces boulardii 250 MG CAP PO SCH (09:03)
[2017-10-01] MEDS: Gabapentin 300 MG CAP PO SCH ×2 (09:03→20:02)
[2017-10-01] MEDS: Senokot S 8.6-50 MG TAB PO SCH ×2 (09:03→20:02)
[2017-10-01] MEDS: Carvedilol 3.125 MG TAB PO SCH ×2 (09:03→20:02)
[2017-10-01] MEDS: Enoxaparin Sodium 40 MG/0.4 ML SYRINGE SC SCH (09:04)
[2017-10-01] MEDS: Lorazepam 1 MG TAB PO SCH ×3 (09:04→20:05)
[2017-10-01] MEDS: Insulin Glargine 10 UNITS in Pre-Filled Syringe 1 EACH SC SCH ×2 (09:04→20:22)
[2017-10-01] MEDS: Polyethylene Glycol 3350 17 GM Packet PO SCH (09:05)
[2017-10-01] MEDS: HumaLOG 300 UNITS/3 ML VIAL SC PRN (11:23)
--- NOTE | 2017-10-01 15:00 | PDOC.PN ---
- Subjective Encounter Start Date: 10/01/17 Encounter Start Time: 14:58 Mr. Sahni was seen today in follow-up of Infected decubitus ulcer. He does not have any new complaints. - Objective Resuscitation Status: Resuscitation Status FULL:Full Resuscitation MAR Reviewed: Yes Vital Signs & Weight: Vital Signs (12 hours) Temp Pulse Resp BP Pulse Ox 10/01/17 11:40 95 10/01/17 11:29 98.2 F 60 16 121/71 95 10/01/17 07:31 97.9 F 60 16 94 L 10/01/17 07:27 97.9 F 60 16 118/68 94 L Weight Admit Weight 290 lb Weight 290 lb I&O: 09/30/17 10/01/17 10/02/17 06:59 06:59 06:59 Intake Total 680 2290 Output Total 1999 3300 Balance -1320 -1010 Result Diagrams: 10/01/17 04:37 10/01/17 05:58 Additional Labs: Accuchecks 10/01/17 10/01/17 09/30/17 11:22 05:32 19:40 POC Glucose 153 H 107 148 H 09/30/17 16:12 POC Glucose 96 Phys Exam - Physical Examination HEENT: PERRLA Respiratory: no wheezing, no rales, no rhonchi, clear to auscultation bilateral Cardiovascular: RRR, no significant murmur, no rub Gastrointestinal: soft, non-tender, positive bowel sounds Musculoskeletal: no edema Dx/Plan (1) Decubitus ulcer of ischium Code(s): L89.309 - PRESSURE ULCER OF UNSPECIFIED BUTTOCK, UNSPECIFIED STAGE Status: Acute (2) Amputation of both lower extremities Code(s): S88.911A - COMPLETE TRAUMATIC AMPUTATION OF R LOW LEG, LEVEL UNSP, INIT ; S88.912A - COMPLETE TRAUMATIC AMPUTATION OF L LOW LEG, LEVEL UNSP, INIT Status: Chronic (3) Diabetes type 2, controlled Code(s): E11.9 - TYPE 2 DIABETES MELLITUS WITHOUT COMPLICATIONS Status: Chronic (4) Morbid obesity with BMI of 40.0-44.9, adult Code(s): E66.01 - MORBID (SEVERE) OBESITY DUE TO EXCESS CALORIES; Z68.41 - BODY MASS INDEX (BMI) 40.0-44.9, ADULT Status: Chronic (5) Neurogenic bladder Code(s): N31.9 - NEUROMUSCULAR DYSFUNCTION OF BLADDER, UNSPECIFIED Status: Chronic (6) Spina bifida Code(s): Q05.9 - SPINA BIFIDA, UNSPECIFIED Status: Chronic - Plan * Infected Right Ishial Decubitus- Continue Zosyn. He has had I&D of the area 2 days ago * DM- blood glucose is stable * HTN- blood pressure is stable * Awaiting discharge placement.
[2017-10-02] MEDS: Piperacillin/Tazobactam 4.5 GM in Sodium Chloride 0.9% 100 ML IVPB SCH ×3 (06:00→20:12)
[2017-10-02] MEDS: HYDROcodone/Acetaminophen 10/325 mg Tablet PO PRN (06:01)
[2017-10-02] MEDS: Clopidogrel Bisulfate 75 MG TAB PO SCH (08:55)
[2017-10-02] MEDS: Carvedilol 3.125 MG TAB PO SCH ×2 (08:55→20:14)
[2017-10-02] MEDS: glipiZIDE 5 MG TAB PO SCH ×2 (08:55→16:42)
[2017-10-02] MEDS: Polyethylene Glycol 3350 17 GM Packet PO SCH (08:55)
[2017-10-02] MEDS: Gabapentin 300 MG CAP PO SCH ×2 (08:56→20:14)
[2017-10-02] MEDS: Enoxaparin Sodium 40 MG/0.4 ML SYRINGE SC SCH (08:56)
[2017-10-02] MEDS: Insulin Glargine 10 UNITS in Pre-Filled Syringe 1 EACH SC SCH ×2 (08:56→20:12)
[2017-10-02] MEDS: Senokot S 8.6-50 MG TAB PO SCH ×2 (08:57→20:14)
[2017-10-02] MEDS: Saccharomyces boulardii 250 MG CAP PO SCH (08:57)
[2017-10-02] MEDS: Lorazepam 1 MG TAB PO SCH ×3 (08:57→20:15)
--- NOTE | 2017-10-02 13:11 | PDOC.PN ---
- Subjective Encounter Start Date: 10/02/17 Encounter Start Time: 13:08 Mr. Sahni was seen today in follow-up. He does not have any new complaints. - Objective Resuscitation Status: Resuscitation Status FULL:Full Resuscitation MAR Reviewed: Yes Vital Signs & Weight: Vital Signs (12 hours) Temp Pulse Resp BP Pulse Ox 10/02/17 11:37 98.7 F 61 18 123/70 91 L 10/02/17 07:47 98.5 F 56 L 18 123/71 92 L 10/02/17 03:54 98.6 F 60 16 110/58 L 92 L Weight Admit Weight 290 lb Weight 290 lb I&O: 10/01/17 10/02/17 10/03/17 06:59 06:59 06:59 Intake Total 2290 3750 Output Total 3300 5925 Balance -1010 -8255 Result Diagrams: 10/01/17 04:37 10/01/17 05:58 Additional Labs: Accuchecks 10/02/17 10/02/17 10/01/17 11:36 03:52 20:18 POC Glucose 124 H 100 147 H 10/01/17 15:44 POC Glucose 100 Phys Exam - Physical Examination HEENT: PERRLA Respiratory: no wheezing, no rales, no rhonchi, clear to auscultation bilateral Cardiovascular: RRR, no significant murmur, no rub Gastrointestinal: soft, positive bowel sounds Musculoskeletal: no edema Dx/Plan (1) Decubitus ulcer of ischium Code(s): L89.309 - PRESSURE ULCER OF UNSPECIFIED BUTTOCK, UNSPECIFIED STAGE Status: Acute (2) Amputation of both lower extremities Code(s): S88.911A - COMPLETE TRAUMATIC AMPUTATION OF R LOW LEG, LEVEL UNSP, INIT ; S88.912A - COMPLETE TRAUMATIC AMPUTATION OF L LOW LEG, LEVEL UNSP, INIT Status: Chronic (3) Diabetes type 2, controlled Code(s): E11.9 - TYPE 2 DIABETES MELLITUS WITHOUT COMPLICATIONS Status: Chronic (4) Morbid obesity with BMI of 40.0-44.9, adult Code(s): E66.01 - MORBID (SEVERE) OBESITY DUE TO EXCESS CALORIES; Z68.41 - BODY MASS INDEX (BMI) 40.0-44.9, ADULT Status: Chronic (5) Neurogenic bladder Code(s): N31.9 - NEUROMUSCULAR DYSFUNCTION OF BLADDER, UNSPECIFIED Status: Chronic (6) Spina bifida Code(s): Q05.9 - SPINA BIFIDA, UNSPECIFIED Status: Chronic - Plan * Infected Right Ishial decubitus ulcer- Continue IV Zosyn, and local wound care * Arrangements are in progress for Outpatient care * HTN- blood pressure is stable * DM- blood glucose is stable.
[2017-10-03] MEDS ORDERED: diphenhydrAMINE 25 MG CAP PO SCH (00:45)
[2017-10-03] MEDS: Piperacillin/Tazobactam 4.5 GM in Sodium Chloride 0.9% 100 ML IVPB SCH ×2 (06:02→13:18)
[2017-10-03] MEDS: HYDROcodone/Acetaminophen 10/325 mg Tablet PO PRN ×3 (06:03→13:18)
[2017-10-03] MEDS: Carvedilol 3.125 MG TAB PO SCH (08:40)
[2017-10-03] MEDS: Clopidogrel Bisulfate 75 MG TAB PO SCH (08:40)
[2017-10-03] MEDS: Senokot S 8.6-50 MG TAB PO SCH (08:40)
[2017-10-03] MEDS: glipiZIDE 5 MG TAB PO SCH ×2 (08:40→17:02)
[2017-10-03] MEDS: Saccharomyces boulardii 250 MG CAP PO SCH (08:40)
[2017-10-03] MEDS: Gabapentin 300 MG CAP PO SCH (08:41)
[2017-10-03] MEDS: Enoxaparin Sodium 40 MG/0.4 ML SYRINGE SC SCH (08:41)
[2017-10-03] MEDS: Lorazepam 1 MG TAB PO SCH ×2 (08:41→14:31)
[2017-10-03] MEDS: Insulin Glargine 10 UNITS in Pre-Filled Syringe 1 EACH SC SCH (09:58)
[2017-10-03] MEDS: Polyethylene Glycol 3350 17 GM Packet PO SCH (09:58)
--- NOTE | 2017-10-03 12:16 | PDOC.PN ---
- Subjective Encounter Start Date: 10/03/17 Encounter Start Time: 12:14 Mr. Sahni was seen today in follow-up. He does not have any new complaints. - Objective Resuscitation Status: Resuscitation Status FULL:Full Resuscitation MAR Reviewed: Yes Vital Signs & Weight: Vital Signs (12 hours) Temp Pulse Resp BP BP Pulse Ox 10/03/17 08:45 97.5 F L 59 L 18 10/03/17 08:02 98.0 F 56 L 18 134/72 92 L 10/03/17 04:00 97.5 F L 59 L 18 115/59 L 95 Weight Admit Weight 290 lb Weight 290 lb I&O: 10/02/17 10/03/17 10/04/17 06:59 06:59 06:59 Intake Total 3750 3180 Output Total 5995 4800 Balance -2175 -1620 Result Diagrams: 10/01/17 04:37 10/01/17 05:58 Additional Labs: Accuchecks 10/03/17 10/03/17 10/02/17 11:42 06:07 20:12 POC Glucose 143 H 122 H 138 H 10/02/17 16:40 POC Glucose 143 H Phys Exam - Physical Examination HEENT: PERRLA Respiratory: no wheezing, no rales, no rhonchi, clear to auscultation bilateral Cardiovascular: RRR, no significant murmur, no rub Gastrointestinal: soft, non-tender, positive bowel sounds Musculoskeletal: no edema Dx/Plan (1) Decubitus ulcer of ischium Code(s): L89.309 - PRESSURE ULCER OF UNSPECIFIED BUTTOCK, UNSPECIFIED STAGE Status: Acute (2) Amputation of both lower extremities Code(s): S88.911A - COMPLETE TRAUMATIC AMPUTATION OF R LOW LEG, LEVEL UNSP, INIT ; S88.912A - COMPLETE TRAUMATIC AMPUTATION OF L LOW LEG, LEVEL UNSP, INIT Status: Chronic (3) Diabetes type 2, controlled Code(s): E11.9 - TYPE 2 DIABETES MELLITUS WITHOUT COMPLICATIONS Status: Chronic (4) Morbid obesity with BMI of 40.0-44.9, adult Code(s): E66.01 - MORBID (SEVERE) OBESITY DUE TO EXCESS CALORIES; Z68.41 - BODY MASS INDEX (BMI) 40.0-44.9, ADULT Status: Chronic (5) Neurogenic bladder Code(s): N31.9 - NEUROMUSCULAR DYSFUNCTION OF BLADDER, UNSPECIFIED Status: Chronic (6) Spina bifida Code(s): Q05.9 - SPINA BIFIDA, UNSPECIFIED Status: Chronic - Plan * Decubitus Ulcer with Infection- he is s/p debridement- continue Zosyn * DM- blood glucose is stable. * HTN- blood pressure is stable * Awaiting placement
[2017-10-03 17:01] VITALS: BP 120/69; TEMP 98
--- NOTE | 2017-10-04 00:44 | DIS ---
DATE OF ADMISSION: 09/27/2017 DATE OF DISCHARGE: 10/03/2017 PRIMARY CARE PHYSICIAN: Dr. Edi Montoya. DISCHARGE DIAGNOSES: 1. Right ischial and sacral decubitus with infection. 2. Diabetes mellitus, type 2. 3. History of paraplegia secondary to spina bifida. 4. Morbid obesity. 5. Hypertension. 6. Gastroesophageal reflux disease. 7. Anxiety and depression. DISCHARGE MEDICATIONS: Include Zosyn 4.5 mg IV q.6 h until 11/10/2017, Florastor 250 mg daily, Zolof t 100 mg at bedtime, Protonix 40 mg daily, multivitamin once a day, Ativan 1 mg t.i.d., Lantus insuli n 20 units twice a day, [place] 10/325 mg two tablets q.6 hours as needed, Humalog as directed, glipizi de 5 mg twice a day, Neurontin 300 mg twice daily, famotidine 20 mg twice a day, docusate 240 mg 2 ta blets twice daily, Plavix 75 mg daily, carvedilol 3.125 mg twice a day. PROCEDURES DONE DURING ADMISSION: The patient had a CT scan of the abdomen and pelvis and this showe d a likely component of spina bifida with open posterior elements of the lower lumbar spine containin g the thecal sac. There was some chronic osteomyelitis of the right ischium, also abnormal right hip joint effusion which could be septic arthritis. There is a very large paramidline bile containing h ernia and bilateral renal calculi. The patient also had a joint aspiration of the right hip joint, o nly demonstrating a scant amount of aspirate and the patient had an I&D of the ischial wound under ge neral anesthesia. CODE STATUS: FULL CODE. ALLERGIES: CEFTRIAXONE and TRAMADOL as well as BROCCOLI. HOSPITAL COURSE: Mr. Sahni is a pleasant 52-year-old gentleman that has a history of paraplegia seco ndary to spina bifida. He also has a history of chronic decubitus ulcers over the past few years. Mook castellanos had [facility], but apparently had been lost to follow up. He recently was seen in Dr. Mendes' office and there he examined the wounds and felt that they were infected and advi sed that he come to the emergency room for evaluation. He was admitted, felt that the wounds were in fected and need to be evaluated. He was admitted and started on IV antibiotics. He was seen by [facility]. He underwent debridement of the wounds and Dr. Mendes recommended that he continue IV Zo syn for approximately 6 weeks and the treatment on 11/10/2017 he would also be getting a weekly CBC a nd a chemistry panel and CRP which will be sent to Dr. Mendes. The patient will be discharged to the retirement unit on 10/03/2017.
== END 2017-10-03 19:06 | DRG 592 ==
LOC: T4-A 12:40 → 2NO 10-01 09:57 → T4-A 10-01 10:12
PROVIDERS: ADMIT Family Medicine; ATTEND Family Medicine
DX: L89.154 Pressure ulcer of sacral region, stage 4 (principal); N39.0 Urinary tract infection, site not specified; T83.511A Infection and inflammatory reaction due to indwelling urethral catheter, initial encounter; Z68.41 Body mass index [BMI] 40.0-44.9, adult; M86.9 Osteomyelitis, unspecified; G82.20 Paraplegia, unspecified; L89.314 Pressure ulcer of right buttock, stage 4; E66.01 Morbid (severe) obesity due to excess calories; Q05.9 Spina bifida, unspecified; N31.9 Neuromuscular dysfunction of bladder, unspecified; Y84.6 Urinary catheterization as the cause of abnormal reaction of the patient, or of later complication, without mention of misadventure at the time of the procedure; I10 Essential (primary) hypertension; I25.10 Atherosclerotic heart disease of native coronary artery without angina pectoris; K21.9 Gastro-esophageal reflux disease without esophagitis; F41.9 Anxiety disorder, unspecified; F32.9 Major depressive disorder, single episode, unspecified; Z88.8 Allergy status to other drugs, medicaments and biological substances; Z91.018 Allergy to other foods; Z93.3 Colostomy status; Z89.512 Acquired absence of left leg below knee; Z89.511 Acquired absence of right leg below knee; Z79.899 Other long term (current) drug therapy; Z79.4 Long term (current) use of insulin; Z79.891 Long term (current) use of opiate analgesic; Z87.891 Personal history of nicotine dependence; F12.90 Cannabis use, unspecified, uncomplicated
CPT/HCPCS: 20610; 36415; 36416; 36569; 74177; 77002; 80048; 80053; 80202; 83735; 85025; 87070; 87077; 87086; 87186; 87205; 90471; 90732; C1751; G0009; J1644; J1650; J2001; J2270; J2405; J2543; J2704; J3010; J3370; J7050

== ENCOUNTER 2018-02-05 16:58 | Observation (INO) | payer MEDICARE, OTHER ==
--- NOTE | 2018-02-05 17:48 | RAD ---
ONE VIEW CHEST: History: Cough. Comparison: 11-11-14 FINDINGS: Heart is enlarged. Pulmonary vessels are prominent. Patchy interstitial opacities, without consolidat ion or mass. No pneumothorax or osseous abnormalities. IMPRESSION: Cardiomegaly. Pulmonary vascular prominence. Patchy interstitial opacities. Congestive heart failure. POS: [facility]
[2018-02-05 18:05] LABS: #Eosinphils 0.2 thou/uL (0.0-0.7); #Lymphocytes 3.1 thou/uL (1.20-3.40); #Monocytes 0.8 thou/uL (0.11-0.59); %Basophils 0.2 % (0.0-1.0); %Eosinophils 1.7 % (0.0-10.0); %Lymphocytes 21.9 % (21.0-51.0); %Monocytes 5.3 % (0.0-10.0); %Neutrophils 70.8 % (42.0-75.0); Hemoglobin 14.1 g/dL (14.0-18.0); Mean Corpuscular HGB CONC 32.4 g/dL (32.0-36.0); Mean Corpuscular Hemoglobin 27.3 pg (27.0-31.0); Mean Corpuscular Volume 84.4 fL (78.0-98.0); Mean Platelet Volume 7.5 fL (7.4-10.4); Platelet Count 245 thou/uL (130-400); RBC Distribution Width 14.5 % (11.5-14.5); Red Blood Cell (RBC) Count 5.16 mill/uL (4.70-6.10); White Blood Cell (WBC) Count 14.1 thou/uL (4.8-10.8)
[2018-02-05 18:19] LABS: ALT (SGPT) 11 U/L (8-55); AST (SGOT) 10 U/L (5-34); Albumin 3.6 g/dL (3.5-5.0); Alkaline Phosphatase 95 U/L (40-150); Anion Gap 13 mmol/L (10-20); BUN (Urea Nitrogen) 8 mg/dL (8.4-25.7); Bilirubin, Total 0.3 mg/dL (0.2-1.2); Calc. Creatinine Clearance 0 mL/min (70-130); Calcium 8.8 mg/dL (7.8-10.44); Carbon Dioxide 22 mmol/L (22-29); Chloride 101 mmol/L (98-107); Estimated GFR-MDRD Greater than 90; Globulin 3.7 g/dL (2.4-3.5); Glucose 181 mg/dL (70-105); Potassium 3.7 mmol/L (3.5-5.1); Protein, Total 7.3 g/dL (6.0-8.3); Sodium 132 mmol/L (136-145)
[2018-02-05 18:42] LABS: CKMB 2.4 ng/mL (0-6.6)
[2018-02-05] MEDS ORDERED: Azithromycin 500 MG VIAL ONE (19:43)
[2018-02-05] MEDS ORDERED: Sodium Chloride 0.9% 0 ML ONE (19:43)
[2018-02-05] MEDS ORDERED: HYDROcodone/Acetaminophen 5/325 mg Tablet ONE (20:49)
[2018-02-05 22:00] LABS: CKMB 2.3 ng/mL (0-6.6)
[2018-02-05] MEDS ORDERED: Acetaminophen 325 MG TAB PO PRN ×2 (22:50→22:54)
[2018-02-05] MEDS ORDERED: Acetaminophen 650 MG Suppository PR PRN (22:50)
[2018-02-05] MEDS ORDERED: Bisacodyl 5 MG TAB PO PRN (22:50)
[2018-02-05] MEDS ORDERED: Zolpidem Tartrate 5 MG TAB PO PRN (22:50)
[2018-02-05] MEDS ORDERED: Senokot S 8.6-50 MG TAB PO PRN (22:50)
[2018-02-05] MEDS ORDERED: Sodium Chloride 0.9% 1,000 ML IV SCH (22:54)
[2018-02-05] MEDS ORDERED: HYDROcodone/Acetaminophen 5/325 mg Tablet PO PRN ×2 (22:54)
[2018-02-05] MEDS ORDERED: Dextrose 50% Abboject 50 ML SYRINGE SLOW IVP PRN (23:03)
[2018-02-05] MEDS ORDERED: HumaLOG 300 UNITS/3 ML VIAL SC PRN (23:03)
[2018-02-05] MEDS ORDERED: Dextrose 5% in Water 1,000 ML IV PRN (23:03)
[2018-02-05] MEDS: Guaifenesin DM 100-10/5 ML UDCUP PO PRN (23:34)
[2018-02-06 01:05] LABS: CKMB 1.9 ng/mL (0-6.6)
[2018-02-06 05:25] LABS: #Eosinphils 0.3 thou/uL (0.0-0.7); #Lymphocytes 2.4 thou/uL (1.20-3.40); #Monocytes 0.7 thou/uL (0.11-0.59); #Neutrophils 7.4 thou/uL (1.40-6.50); %Basophils 0.2 % (0.0-1.0); %Eosinophils 2.4 % (0.0-10.0); %Lymphocytes 22.4 % (21.0-51.0); %Monocytes 6.4 % (0.0-10.0); %Neutrophils 68.7 % (42.0-75.0); Hemoglobin 13.4 g/dL (14.0-18.0); Mean Corpuscular HGB CONC 32.7 g/dL (32.0-36.0); Mean Corpuscular Hemoglobin 27.4 pg (27.0-31.0); Mean Corpuscular Volume 83.8 fL (78.0-98.0); Mean Platelet Volume 7.7 fL (7.4-10.4); Platelet Count 225 thou/uL (130-400); RBC Distribution Width 14.3 % (11.5-14.5); White Blood Cell (WBC) Count 10.7 thou/uL (4.8-10.8)
[2018-02-06 05:43] LABS: ALT (SGPT) 8 U/L (8-55); AST (SGOT) 8 U/L (5-34); Albumin 3.3 g/dL (3.5-5.0); Alkaline Phosphatase 94 U/L (40-150); Anion Gap 13 mmol/L (10-20); BUN (Urea Nitrogen) 11 mg/dL (8.4-25.7); Bilirubin, Total 0.3 mg/dL (0.2-1.2); Calc. Creatinine Clearance 212 mL/min (70-130); Calcium 8.9 mg/dL (7.8-10.44); Carbon Dioxide 24 mmol/L (22-29); Chloride 103 mmol/L (98-107); Estimated GFR-MDRD Greater than 90; Globulin 3.6 g/dL (2.4-3.5); Glucose 167 mg/dL (70-105); Potassium 3.6 mmol/L (3.5-5.1); Protein, Total 6.9 g/dL (6.0-8.3); Sodium 136 mmol/L (136-145)
--- NOTE | 2018-02-06 07:02 | HP ---
CHIEF COMPLAINT: Upper respiratory infection. HISTORY OF PRESENT ILLNESS: This is a 52-year-old male with past medical history of diabetes mellitus, type 2; spina bifida; right ischial decubitus; obesity; and hypertension, presenting with productive cough, generalized malaise, rhinorrhea, and nasal congestion, which have been ongoing for the past 1 week prior to this admission. The patient states that he had severe shortness of breath, which has been worse in the past 2 days. The patient also stated that he has been having hacking cough, which caused him to spit up some productive sputum. Per the patient, his symptoms have been ongoing for a week. He took NyQuil to help; however, the patient stated that the NyQuil has not completely resolved his symptoms. The patient stated that on the day of admission, he was having severe cough and shortness of breath, and he became very scared that he was not able to breathe and that prompted him to call EMS. The patient stated that he was given two DuoNeb treatments en route to the hospital. In addition to the patient's complaints, the patient is endorsing chest wall pain. The patient stated that the pain is substernal and pain always gets worsened after he coughs. The patient denies any palpitations, dizziness, headaches, abdominal pain, dysuria, hematuria, melena, or hematochezia. REVIEW OF SYSTEMS: Positive for rhinorrhea, chest pain, productive cough, and shortness of breath, otherwise as stated in the HPI. All other systems are reviewed and are negative. PAST MEDICAL HISTORY: Hyperlipidemia; coronary artery disease; spina bifida; diabetes mellitus, type 2; bilateral knee amputations; hypertension; right ischial decubitus; and obesity. PAST SURGICAL HISTORY: Spinal surgery for spina bifida, bilateral BKA, left hip colostomy, and debridement of right ischial decub. FAMILY HISTORY: Reviewed and noncontributory to this visit. PSYCHIATRIC HISTORY: Includes anxiety and depression. SOCIAL HISTORY: The patient states that he abuses marijuana, but does not do any other illicit drugs. The patient denies alcohol use, and the patient currently smokes cigars. The patient denies smoking tobacco. ALLERGIES: CEFTRIAXONE AND TRAMADOL. CURRENT MEDICATIONS: 1. Albuterol. 2. Coreg 3.125 mg. 3. Plavix 75 mg. 4. Neurontin 300 mg. 5. Glipizide 5 mg b.i.d. 6. Protonix. 7. Zoloft 100 mg. 8. Famotidine 20 mg. 9. [place]. 10. Xanax. PHYSICAL EXAMINATION: VITAL SIGNS: Blood pressure is 124/71, pulse of 75, respiratory rate of 20, and O2 saturation of 99%. CONSTITUTIONAL: The patient is in no apparent distress. The patient is speaking in full sentences. The patient is alert and oriented x3, not in acute distress. The patient smells like urine. The patient is unkempt and the patient is obese. HEENT: Normocephalic, atraumatic. Pupils are equally round and reactive to light. Extraocular movements are intact. No scleral icterus. No conjunctival pallor. The patient has bilateral nasal congestion. Pharynx, not injected. There is no tenderness at the neck. Mucous membranes are moist. NECK: Trachea is midline. Full range of motion. Supple. LUNGS: The patient has bilateral crackles that can be appreciated at the lung bases. CARDIAC: Positive S1 and S2. Regular rate and rhythm. No murmurs, no gallops, no rubs appreciated. ABDOMEN: Obese abdomen. Soft, nontender, and nondistended. The patient do have a huge hernia that is noted at the left lower quadrant. EXTREMITIES: The patient has 5/5 upper extremity strength with no edema. Lower extremities; the patient has bilateral below-knee amputations. There is no edema noted. NEUROLOGIC: Cranial nerves 2 through 12 grossly intact. No neurologic deficits noted. SKIN: Warm, dry, and intact. PSYCH: Normal affect. DIAGNOSTIC DATA: EKG showed normal sinus rhythm with a rate of 74. Chest x-ray showed cardiomegaly. Pulmonary vessels are prominent. Patchy interstitial opacities without consolidation or mass. CHF. No osseous findings. LABORATORY DATA: WBC is 14.1, hemoglobin is 14.1, hematocrit is 43.6, MCV is 84.4, and platelet count is 245. Sodium is 132, potassium is 3.2, chloride is 101, carbon dioxide of 22, anion gap of 13, BUN is 8, creatinine is 0.77, and glucose is 181. Lactic acid is 1.5. Troponin is 0.034. ASSESSMENT AND PLAN: This is a 52-year-old male being admitted for; 1. Community-acquired pneumonia. At this point, chest x-ray shows some infiltrates on imaging. At this point, we are going to start the patient on antibiotics and we are going to continue the patient on the antibiotics. We are going to give the patient DuoNeb treatments, and we are going to admit the patient and observe the patient. 2. Chest pain, rule out acute coronary syndrome. At this point, the patient's troponin is mildly elevated. We will trend the patient's troponins. We have consulted Cardiology. We will follow up with any recommendations. 3. Pleural effusions, likely due to new onset congestive heart failure. Per the patient, in the past couple of weeks, his shortness of breath has been worsened. The patient stated that any exertion makes him get shortness of breath. At this point, we have ordered an echo. We have consulted Cardiology. We will follow up on these things, and we will continue to treat the patient accordingly. 4. Hypertension, uncontrolled. We will continue the patient on p.r.n. medications to control the patient's blood pressure. We will monitor the patient closely. 5. Diabetes mellitus, type 2. We will continue to manage the patient's blood sugars. We will continue insulin sliding scale. 6. Morbid obesity. We will advise for patient to adjust his diet. 7. Deep venous thrombosis/gastrointestinal prophylaxis. Job ID: [id number]
[2018-02-06] MEDS: Guaifenesin DM 100-10/5 ML UDCUP PO PRN ×2 (08:28→21:03)
[2018-02-06] MEDS: Enoxaparin Sodium 40 MG/0.4 ML SYRINGE SC SCH (08:29)
[2018-02-06] MEDS: Furosemide 40 MG/4 ML VIAL SLOW IVP SCH (08:29)
[2018-02-06] MEDS: Famotidine 20 MG TAB PO SCH ×2 (08:29→21:02)
[2018-02-06] MEDS: Saccharomyces boulardii 250 MG CAP PO SCH (08:29)
[2018-02-06] MEDS: Clopidogrel Bisulfate 75 MG TAB PO SCH (08:29)
[2018-02-06] MEDS: Gabapentin 300 MG CAP PO SCH ×2 (08:29→21:02)
[2018-02-06] MEDS: Multivitamin W/ Minerals 1 TAB PO SCH (08:29)
[2018-02-06] MEDS: Famotidine/PF 20 mg/2ml Vial SLOW IVP SCH ×2 (08:30→21:02)
--- NOTE | 2018-02-06 08:33 | PDOC.PN ---
- Subjective Encounter Start Date: 02/06/18 Encounter Start Time: 08:30 Subjective: Resting comfortably. No complaints. Breathing is significantly improved. -: Denies any chest pain. No headaches/dizziness. No n/v. Denies any abdo pain -: Known hx of [place] associated with heavy cocaine use 10+ years ago. Wheelchair bound (hx of Spina Bifida) and s/p bilateral below the knee amputation due to dragging his legs when using his wheelchair. Occasional edema in bilateral thighs but none at this time. Bowels normal. No fevers, chills or sweats. Of note he smokes cigars every morning with coffee. Chronic cough. No hemoptysis. No known to have COPD or CHF. Not seen regularly by manufacturing quality technician. - Objective Resuscitation Status - Order Detail: 02/05/18 22:50 Resuscitation Status Routine Resuscitation Status: FULL: Full Resuscitation MAR Reviewed: Yes Vital Signs & Weight: Vital Signs (12 hours) Temp Pulse Resp BP Pulse Ox 02/06/18 07:26 98.5 F 87 20 118/56 L 97 02/06/18 07:08 99 02/06/18 07:05 74 14 99 02/06/18 01:30 94 L 02/06/18 01:28 83 16 94 L Weight Weight 294 lb I&O: 02/05/18 02/06/18 02/07/18 06:59 06:59 06:59 Intake Total 360 Output Total 1200 Balance -840 Result Diagrams: 02/06/18 05:01 02/06/18 05:01 Additional Labs: Accuchecks 02/05/18 23:38 POC Glucose 267 H Phys Exam - Physical Examination Constitutional: NAD HEENT: PERRLA, sclera anicteric, oral pharynx no lesions Neck: no nodes, no JVD, full ROM Respiratory: no wheezing, no rales, clear to auscultation bilateral Cardiovascular: RRR Gastrointestinal: soft, non-tender, no distention, positive bowel sounds Musculoskeletal: no edema Bilateral knee amputee Neurological: non-focal, normal sensation Lymphatic: no nodes Psychiatric: normal affect, A&O x 3 Skin: no rash, normal turgor Dx/Plan (1) Pneumonia Code(s): J18.9 - PNEUMONIA, UNSPECIFIED ORGANISM Status: Acute (2) Diabetes mellitus type 2 in obese Code(s): E11.69 - TYPE 2 DIABETES MELLITUS WITH OTHER SPECIFIED COMPLICATION; E66.9 - OBESITY, UNSPECIFIED Status: Chronic (3) Acute CHF Code(s): I50.9 - HEART FAILURE, UNSPECIFIED Status: Acute (4) History of [place] (myocardial infarction) Code(s): I25.2 - OLD MYOCARDIAL INFARCTION Status: Chronic (5) History of drug abuse Code(s): Z87.898 - PERSONAL HISTORY OF OTHER SPECIFIED CONDITIONS Status: Chronic - Plan cont current plan of care, continue antibiotics, DVT proph w/lovenox Awaiting Echo -: Awaiting Cardiology consultation * .
[2018-02-06] MEDS ORDERED: Acetaminophen/Codeine 30-300mg Tablet PO PRN (12:55)
[2018-02-06] MEDS: HumaLOG 300 UNITS/3 ML VIAL SC PRN ×2 (13:11→17:01)
[2018-02-06 13:56] VITALS: BMI 44.6
--- NOTE | 2018-02-06 15:50 | CON ---
DATE OF CONSULTATION: 02/06/2018 REASON FOR CONSULTATION: Heart failure and mildly elevated troponins. HISTORY OF PRESENT ILLNESS: Mr. Sahni is a very pleasant 52-year-old gentleman, who comes to the hospital for a cough. He has symptoms concerning for bronchitis, which is something that has been going lately around the city. He came in with this cough productive of green sputum. During his initial evaluation, troponins were drawn, they were in the indeterminate range at 0.03, 0.03, 0.03. BNP was normal at 84.7. Chest x-ray showed mild CHF with patchy infiltrates consistent with multilobar pneumonia. He was started on antibiotics and given IV Lasix. He did diurese a little bit and his breathing is a little bit better. He continues to have this cough. Echocardiogram was done and it was just read, EF is mildly reduced at 35% to 40% with anterior to anteroseptal hypokinesis as well as inferoseptal hypokinesis. He has a history of coronary artery disease. He was seen here in 2010 for an OR after cocaine use. He had a heart catheterization that showed an 80% obstructed first diagonal that was too small to intervene on, this was treated medically. He also has had a 50% lesion on the proximal LAD at the bifurcation with a large septal blow torch burner. This was left untreated with medications. He has not been on any aspirin or any other heart medication as he really thought that his main issue at that time was because of the cocaine and he has not done that cocaine since. He only uses marijuana pretty much on a daily basis. He denies currently any chest pain, tightness, or pressure, but he tells me now that he hears that he has noticed that for the last 6 months, he has a little bit of chest tightness and burning. His PCP gave him a PPI for this and it improved minimally, but he continues to have this and this might be just ischemia. Currently, he is pain free. PAST MEDICAL HISTORY: 1. Coronary artery disease as above. 2. Hyperlipidemia. 3. Spina bifida. 4. Type 2 diabetes. 5. Bilateral qtpur-beb-gyja amputations. 6. Hypertension. 7. Right ischial decubitus ulcer. 8. Obesity. PAST SURGICAL HISTORY: 1. Spinal surgery for spina bifida. 2. Bilateral BKAs. 3. Left hip surgery. 4. Colostomy. 5. Debridement of right ischial decubitus ulcer. OUTPATIENT MEDICATIONS: Include; 1. Albuterol. 2. Coreg 3.125 mg b.i.d. 3. Plavix 75 mg a day. 4. Neurontin 300 mg a day. 5. Glipizide 5 mg b.i.d. 6. Protonix. 7. Zoloft 100 mg a day. 8. Famotidine. 9. [place]. 10. Xanax p.r.n. ALLERGIES: CEFTRIAXONE AND TRAMADOL. SOCIAL HISTORY: Uses marijuana every day, but no other drugs. No alcohol. He smokes cigars, but not cigarettes. FAMILY HISTORY: No early coronary artery disease. REVIEW OF SYSTEMS: A 12-point review of systems was done and was found to be negative unless stated in the history of present illness. PHYSICAL EXAMINATION: VITAL SIGNS: Temperature 98.6, pulse 70, respiratory rate 20, saturating 96% on room, blood pressure 112/55. GENERAL: Awake, alert, and oriented x3. No distress. HEENT: Normocephalic and atraumatic. NECK: Supple. Short neck. LUNGS: Have expiratory wheezes. CARDIOVASCULAR: S1 and S2. No S3 or S4. No murmurs. ABDOMEN: Soft. Positive bowel sounds. EXTREMITIES: Bilateral BKA. LABORATORY DATA: Laboratory work was reviewed. CBC with a white count of 14 on admission, down to 10; hemoglobin of 13.4; hematocrit 41; platelet count 225. Chemistry was reviewed, unremarkable except for a troponin of 0.03 in 3 different times. CK-MB was normal. Albumin was 3.3. TSH was normal. BNP was normal. EKG was reviewed. Chest x-ray was reviewed. ASSESSMENT: 1. Acute on chronic systolic and diastolic heart failure. 2. Acute bronchitis. 3. Coronary artery disease. 4. Substance abuse. PLAN: 1. He is currently admitted for bronchitis, however, he has reduced ejection fraction on the echo, most likely related to his coronary artery disease. He will need risk stratification with heart catheterization, however, this is not the right time for this as he is coughing quite a bit and is unable to lay flat. We will continue IV Lasix as 40 IV daily and we will try to get him through this acute bronchitis and we will see him back in the office in 1 month to plan for outpatient cardiac catheterization. 2. As far as his heart failure medications, would continue his current Coreg dose and will add extremely low dose lisinopril at half a tablet of the 2.5 mg daily as his blood pressures is borderline currently. Thank you for letting me to participate in the care of your patient. We will follow. Job ID: [id number]
[2018-02-06] MEDS ORDERED: Azithromycin 500 MG in Sodium Chloride 0.9% 250 ML 250 ML IVPB SCH (20:00)
[2018-02-06] MEDS ORDERED: ALPRAZolam 1 MG TAB PO PRN (20:40)
[2018-02-06] MEDS: HYDROcodone/Acetaminophen 10/325 mg Tablet PO PRN (21:01)
[2018-02-07 05:09] LABS: #Eosinphils 0.2 thou/uL (0.0-0.7); #Lymphocytes 2.5 thou/uL (1.20-3.40); #Monocytes 0.6 thou/uL (0.11-0.59); #Neutrophils 6.6 thou/uL (1.40-6.50); %Basophils 0.4 % (0.0-1.0); %Eosinophils 2.1 % (0.0-10.0); %Lymphocytes 24.9 % (21.0-51.0); %Neutrophils 66.6 % (42.0-75.0); Hemoglobin 13.7 g/dL (14.0-18.0); Mean Corpuscular HGB CONC 32.8 g/dL (32.0-36.0); Mean Corpuscular Hemoglobin 27.3 pg (27.0-31.0); Mean Corpuscular Volume 83.2 fL (78.0-98.0); Mean Platelet Volume 7.7 fL (7.4-10.4); Platelet Count 227 thou/uL (130-400); RBC Distribution Width 14.4 % (11.5-14.5); Red Blood Cell (RBC) Count 5.04 mill/uL (4.70-6.10)
[2018-02-07 05:31] LABS: ALT (SGPT) 9 U/L (8-55); AST (SGOT) 11 U/L (5-34); Albumin 3.6 g/dL (3.5-5.0); Alkaline Phosphatase 85 U/L (40-150); Anion Gap 14 mmol/L (10-20); BUN (Urea Nitrogen) 10 mg/dL (8.4-25.7); Bilirubin, Total 0.4 mg/dL (0.2-1.2); Calc. Creatinine Clearance 208 mL/min (70-130); Calcium 8.9 mg/dL (7.8-10.44); Carbon Dioxide 23 mmol/L (22-29); Chloride 100 mmol/L (98-107); Estimated GFR-MDRD Greater than 90; Globulin 3.7 g/dL (2.4-3.5); Glucose 196 mg/dL (70-105); Potassium 3.8 mmol/L (3.5-5.1); Protein, Total 7.3 g/dL (6.0-8.3); Sodium 133 mmol/L (136-145)
[2018-02-07] MEDS: HumaLOG 300 UNITS/3 ML VIAL SC PRN ×2 (06:23→12:46)
[2018-02-07] MEDS: Famotidine/PF 20 mg/2ml Vial SLOW IVP SCH (08:47)
[2018-02-07] MEDS: Enoxaparin Sodium 40 MG/0.4 ML SYRINGE SC SCH (08:50)
[2018-02-07] MEDS: Multivitamin W/ Minerals 1 TAB PO SCH (08:50)
[2018-02-07] MEDS: Famotidine 20 MG TAB PO SCH (08:50)
[2018-02-07] MEDS: Saccharomyces boulardii 250 MG CAP PO SCH (08:50)
[2018-02-07] MEDS: Clopidogrel Bisulfate 75 MG TAB PO SCH (08:50)
[2018-02-07] MEDS: Gabapentin 300 MG CAP PO SCH (08:50)
[2018-02-07] MEDS: Furosemide 40 MG/4 ML VIAL SLOW IVP SCH (08:51)
[2018-02-07] MEDS ORDERED: Lisinopril 2.5 MG TAB PO SCH (09:00)
[2018-02-07] MEDS: HYDROcodone/Acetaminophen 10/325 mg Tablet PO PRN ×2 (09:04→15:00)
--- NOTE | 2018-02-07 09:36 | PDOC.PN ---
- Subjective Encounter Start Date: 02/07/18 Encounter Start Time: 07:30 Subjective: Comfortable, eating breakfast. Complaining of right ear discomfort. No pain -: Feels like it is clogged. No headache. No fever. Tolerating oral intake. -: Denies any n/v. No chest pain. SOB completely resolved. No other complaints - Objective Resuscitation Status - Order Detail: 02/05/18 22:50 Resuscitation Status Routine Resuscitation Status: FULL: Full Resuscitation Vital Signs & Weight: Vital Signs (12 hours) Temp Pulse Resp BP BP Pulse Ox 02/07/18 08:50 67 106/57 L 02/07/18 07:38 98.3 F 67 20 106/57 L 95 02/07/18 07:27 99 02/07/18 07:25 83 14 99 02/07/18 04:21 98.0 F 73 20 112/54 L 93 L 02/07/18 01:58 87 16 94 L 02/06/18 23:26 97.5 F L 77 20 117/59 L 92 L 02/06/18 21:49 72 18 96 Weight Admit Weight 294 lb Weight 292 lb 9.6 oz I&O: 02/06/18 02/07/18 02/08/18 06:59 06:59 06:59 Intake Total 360 2764 Output Total 1200 3700 Balance -840 936 Result Diagrams: 02/07/18 04:47 02/07/18 04:47 Additional Labs: Accuchecks 02/06/18 02/06/18 02/06/18 21:08 16:49 11:33 POC Glucose 176 H 200 H 218 H Phys Exam - Physical Examination Constitutional: NAD patient appears diaphoretic, states its principal archaeologist his room HEENT: PERRLA Rt TM slightly erythematous, no bulging. Neck: no nodes, supple, full ROM Respiratory: clear to auscultation bilateral Cardiovascular: RRR Gastrointestinal: soft, non-tender, no distention, positive bowel sounds Musculoskeletal: no edema Neurological: non-focal Psychiatric: normal affect, A&O x 3 Skin: no rash, normal turgor Dx/Plan (1) Pneumonia Code(s): J18.9 - PNEUMONIA, UNSPECIFIED ORGANISM Status: Acute (2) Diabetes mellitus type 2 in obese Code(s): E11.69 - TYPE 2 DIABETES MELLITUS WITH OTHER SPECIFIED COMPLICATION; E66.9 - OBESITY, UNSPECIFIED Status: Chronic (3) Acute CHF Code(s): I50.9 - HEART FAILURE, UNSPECIFIED Status: Acute (4) History of [place] (myocardial infarction) Code(s): I25.2 - OLD MYOCARDIAL INFARCTION Status: Chronic (5) History of drug abuse Code(s): Z87.898 - PERSONAL HISTORY OF OTHER SPECIFIED CONDITIONS Status: Chronic - Plan cont current plan of care, continue antibiotics Status post Echo. BNP improving. Awaiting report -: Continue meds as per Dr. Diaz, for review today. -: He is on Levaquin which would cover AOM. Continue current Abx. * .
--- NOTE | 2018-02-07 13:27 | PDOC.CTH ---
Cardiology Progress Note - Subjective He is doing much better. He has diuresed well and his breathing is back to normal. - Objective Vital Signs Temp Pulse Resp BP BP Pulse Ox 02/07/18 11:12 99.0 F 73 20 110/53 L 95 02/07/18 10:21 64 15 99 02/07/18 08:50 67 106/57 L 02/07/18 07:38 98.3 F 67 20 106/57 L 95 02/07/18 07:27 99 02/07/18 07:25 83 14 99 02/07/18 04:21 98.0 F 73 20 112/54 L 93 L 02/07/18 01:58 87 16 94 L Admit Weight 294 lb Weight 292 lb 9.6 oz 02/06/18 02/07/18 02/08/18 06:59 06:59 06:59 Intake Total 360 2764 Output Total 1200 3700 Balance -840 -936 - Physical Examination General/Neuro: alert & oriented x3, NAD Neck: no JVD present Lungs: CTA, unlabored respirations Heart: RRR Abdomen: NT/ND Extremities: other: (Bilat BKA.) - Telemetry Telemetry Rhythm: NSR - Labs Result Diagrams: 02/07/18 04:47 02/07/18 04:47 Troponin/CKMB CK-MB (CK-2) 1.9 ng/mL (0-6.6) 02/06/18 00:15 Troponin I 0.033 ng/mL (< 0.028) H 02/06/18 00:15 - Assessment/Plan 1. Acute bronchitis. 2. Acute on chronic systolic and diastolic heart failure. 3. New onset CM EF at 40-45% PLAN: - May discharge home from cardiac perspective. - Will follow up in one month to assess for ischemia. - Continue BB, low dose ACEI and daily PO lasix at 40 mg .
[2018-02-07 15:37] VITALS: BP 111/59; TEMP 98.5
--- NOTE | 2018-02-07 21:32 | DIS ---
DATE OF ADMISSION: 02/05/2018 DATE OF DISCHARGE: 02/07/2018 CONSULTING PHYSICIAN: Dr. Diaz of Cardiology. DISCHARGE DIAGNOSES: 1. Community-acquired pneumonia. 2. Acute on chronic congestive heart failure. 3. Type 2 diabetes mellitus. 4. Hypertension. 5. Bilateral amputee. HOSPITAL COURSE: Mr. Sahni is a very pleasant 52-year-old man presenting initially with increased shortness of breath and cough for five days. He reported being intermittently unwell for approximately a week and a half. prior to presenting to the ED, he had been experiencing fevers. Upon arrival to the ED, he received a DuoNeb treatment with slight improvement. He underwent chest x-ray, which demonstrated pulmonary infiltrate in the bilateral upper lobes. He was noted to have cardiomegaly with pulmonary vascular prominence and patchy interstitial opacities, changes notable for congestive heart failure. The patient was placed on IV Levaquin and admitted for further DuoNeb treatments as well as chest pain rule out. Upon initial evaluation, the patient states he did not experience any chest pain per se, but was having difficulty catching his breath. LABORATORY STUDIES: Initially showed a white count of 14.1. He had serial TnIs, which were negative. BNP has raised at 94.7. Laboratory studies otherwise notable for sodium of 132, which appear stable for him. Potassium 3.7. Renal function normal. EGFR greater than 90. Liver function studies unremarkable. During his hospital stay, the patient was followed by Dr. Diaz, who recommended to continue IV Lasix. He reviewed the echocardiogram done, which did demonstrate reduced ejection fraction. He was continued on Coreg and started on low-dose lisinopril 2.5 mg daily. The patient continued to have significant improvement during his stay. On day of discharge, he has been cleared by Dr. Diaz with recommendations to continue lisinopril, carvedilol, and Zestril. The patient was also advised to follow up with Dr. Diaz in one month for workup of ischemia. His breathing is significantly better, and on day of discharge, his lung sounds are clear. The patient is without any complaints. He has been tolerating food without any difficulties. Denies having any nausea or vomiting. Denies having any abdominal pain. Has been moving his bowels without any diarrhea or constipation. Denies having any chest palpitations or shortness of breath. No further fever during his stay. PHYSICAL EXAMINATION: GENERAL: The patient appears well developed, well nourished, and he is in no acute distress. VITAL SIGNS: Temperature 98.5, pulse 70, respirations 16, O2 saturation 94% on room air, and BP 111/59. HEENT: Normocephalic and atraumatic. Pupils are equal, round, and reactive to light. Sclerae without icterus. Oropharynx is clear. NECK: Supple without lymphadenopathy. LUNGS: Clear to auscultation bilaterally without wheezes, rales, or rhonchi. CARDIAC: Regular rate and rhythm without audible murmurs, rubs, or gallops. ABDOMEN: Soft, nontender, and nondistended. Normoactive bowel sounds present. EXTREMITIES: No edema noted in bilateral thighs. LABORATORY DATA: White blood count 10, hemoglobin 13.7, hematocrit 42, platelets 227. Sodium 133. Renal function, normal. Potassium 3.8, glucose 196. Liver function studies normal. BNP reduced to 59.2. IMAGING DATA: Chest x-ray done on 02/05/2018. Cardiomegaly. Pulmonary vascular prominence. Patchy interstitial opacities without consolidation or mass. Congestive heart failure changes present. DISCHARGE MEDICATIONS: 1. Prescription given for Pepcid 20 mg p.o. b.i.d. 2. Prescription given for Lasix 40 mg p.o. daily. 3. Prescription given for levofloxacin 250 mg p.o. daily x4 days. 4. Lisinopril 1.25 mg p.o. daily, new prescription given. 5. The patient was otherwise advised to resume home medications. CONDITION AT DISCHARGE: Stable. ACTIVITY: As tolerated. The patient is wheelchair bound due to bilateral the knee amputations. DIET: Heart healthy/diabetic diet. FOLLOWUP: The patient was advised to follow up with his primary care physician. He will also follow up with Dr. Diaz as recommended in one month. DISPOSITION: Discharged home on February 07, 2018. Job ID: [id number]
[2018-02-08] MEDS ORDERED: Furosemide 40 MG TAB PO SCH (07:30)
--- NOTE | 2018-02-16 18:32 | EKG ---
Test Reason : STAT Blood Pressure : / mmHG Vent. Rate : 070 BPM Atrial Rate : 070 BPM P-R Int : 162 ms QRS Dur : 100 ms QT Int : 378 ms P-R-T Axes : 040 -29 025 degrees QTc Int : 408 ms Normal sinus rhythm Anteroseptal infarct , age undetermined Abnormal ECG Confirmed by CARMEN BAUTISTA ([id number]) on 02/16/2018 6:31:53 PM Referred By: Aimee BAER Confirmed By:CARMEN BAUTISTA
== END 2018-02-07 16:16 | disposition home or self-care (01) ==
LOC: ERS 16:58 → 2SW 19:05
PROVIDERS: ADMIT Internal Medicine; ATTEND Internal Medicine
DX: J18.9 Pneumonia, unspecified organism (principal); I11.0 Hypertensive heart disease with heart failure; I50.43 Acute on chronic combined systolic (congestive) and diastolic (congestive) heart failure; E11.9 Type 2 diabetes mellitus without complications; I25.10 Atherosclerotic heart disease of native coronary artery without angina pectoris; I25.2 Old myocardial infarction; F12.10 Cannabis abuse, uncomplicated; Q05.9 Spina bifida, unspecified; E78.5 Hyperlipidemia, unspecified; E66.01 Morbid (severe) obesity due to excess calories; Z68.41 Body mass index [BMI] 40.0-44.9, adult; F17.290 Nicotine dependence, other tobacco product, uncomplicated; Z89.511 Acquired absence of right leg below knee; Z89.512 Acquired absence of left leg below knee; Z88.1 Allergy status to other antibiotic agents; Z88.5 Allergy status to narcotic agent; Z91.018 Allergy to other foods; Z79.02 Long term (current) use of antithrombotics/antiplatelets; Z79.84 Long term (current) use of oral hypoglycemic drugs; Z79.2 Long term (current) use of antibiotics; Z79.4 Long term (current) use of insulin; Z79.899 Other long term (current) drug therapy; Z98.890 Other specified postprocedural states
CPT/HCPCS: 71045; 80053 ×2; 82553 ×2; 82962 ×3; 83605; 83735; 83880 ×2; 84484 ×3; 85025 ×2; 87040; 87070; 87205; 87804 ×2; 93005 ×2; 93306; 93798; 94640 ×3; 94760; 96365; 96366; 96367; 96375; 97139; 99285; G0378 ×4; 36415; 36416; 84443; 93010; J0456; J1650; J1940; J1956; J7050; J7620; S0028

== ENCOUNTER 2020-03-24 19:00 | Inpatient (IN) | payer MEDICARE, OTHER ==
[2020-03-24] MEDS ORDERED: Clindamycin/D5W 900 mg/50 ml Premix Bag ONE (20:12)
[2020-03-24] MEDS ORDERED: Ketorolac Tromethamine 30 MG/ML VIAL ONE (20:12)
[2020-03-24 20:19] LABS: #Eosinphils 0.1 thou/uL (0.0-0.7); #Lymphocytes 2.9 thou/uL (1.20-3.40); #Monocytes 0.7 thou/uL (0.11-0.59); #Neutrophils 13.5 thou/uL (1.40-6.50); %Basophils 0.1 % (0.0-1.0); %Eosinophils 0.8 % (0.0-10.0); %Lymphocytes 16.8 % (21.0-51.0); %Monocytes 4.3 % (0.0-10.0); Hemoglobin 13.6 g/dL (14.0-18.0); Mean Corpuscular HGB CONC 33.6 g/dL (32.0-36.0); Mean Corpuscular Volume 83.5 fL (78.0-98.0); Mean Platelet Volume 7.3 fL (7.4-10.4); Platelet Count 290 thou/uL (130-400); RBC Distribution Width 14.6 % (11.5-14.5); Red Blood Cell (RBC) Count 4.83 mill/uL (4.70-6.10); White Blood Cell (WBC) Count 17.3 thou/uL (4.8-10.8)
[2020-03-24 20:38] LABS: ALT (SGPT) 10 U/L (8-55); AST (SGOT) 11 U/L (5-34); Albumin 3.6 g/dL (3.5-5.0); Alkaline Phosphatase 75 U/L (40-110); Anion Gap 15 mmol/L (10-20); BUN (Urea Nitrogen) 10 mg/dL (8.4-25.7); Bilirubin, Total 0.2 mg/dL (0.2-1.2); Calc. Creatinine Clearance 0 mL/min (70-130); Carbon Dioxide 23 mmol/L (22-29); Chloride 101 mmol/L (98-107); Globulin 3.6 g/dL (2.4-3.5); Glucose 181 mg/dL (70-105); Potassium 3.6 mmol/L (3.5-5.1); Protein, Total 7.2 g/dL (6.0-8.3); Sodium 135 mmol/L (136-145)
[2020-03-24 20:59] LABS: Bacteria/HPF 2+ HPF (None Seen); Bilirubin Negative (Negative); Blood, Urine Negative (Negative); Clarity Extra Turbid (Clear); Glucose, Urine (Dipstick) Normal (Negative); Ketone, Urine Negative (Negative); Leukocyte 500 Leu/uL (Negative); Nitrite 1+ (Negative); Protein, Urine (Dipstick) Negative (Neg-Trace); RBC/HPF 0-3 HPF (0-3); Specific Gravity, Urine 1.009 (1.002-1.036); Squamous Epithelial 0-3 HPF (0-3); Urobilinogen Normal mg/dL (Less than 2); WBC/HPF Greater than 50 HPF (0-3)
[2020-03-24] MEDS ORDERED: Vancomycin 1 GM/200 ML BAG ONE (21:28)
[2020-03-25] MEDS ORDERED: Acetaminophen 325 MG TAB PO PRN (02:39)
--- NOTE | 2020-03-25 02:39 | PDOC.HHP ---
Hospitalist HPI wound infection History of Present Illness: This is a 54-year-old male patient with a history of CHF, spina bifida, ldka, chronic sacral ulcer and chronic indwelling catheter and colostomy who presents with worsening of his sacral ulcer with increased drainage. Of note patient has congenital spina bifida with resultant complications of continence and over the years has had colostomy and cannot has chronic indwell ing catheter. He developed chronic sacral ulcers which has been treated for a long time. Wound care visits his home to do the management. On the last visit he was noted wound was worsening with increased discharge with some material was noted in the wound. EMS was contacted to bring him here for further evaluation. Patient denies fever nausea vomiting abdominal pain or diarrhea. At presentation vitals were BP 155/88, pulse 71, respiratory rate 20, saturation 96% on room air. Temperature was 98.7. Labs showed WBC 17.3, hemoglobin 13.6 and platelets 290. Chemistry showed sodium 135, glucose 181. Creatinine was 0.84. Urine showed greater than 50 WBCs with poorly managed and turbid urine. Catheter was replaced. He was started on vancomycin and clindamycin and received 30 mils per KG normal saline with an extra additional liter. Also received ketorolac injection. Hospitalist team was consulted for admission. Allergies/Adverse Reactions: Allergy/AdvReac Type Severity Reaction Status Date / Time ceftriaxone [From Rocephin] Allergy Verified 03/25/20 02:03 tramadol Allergy Verified 03/25/20 02:03 BROCCOLI Allergy Uncoded 04/30/19 00:32 Home Medications: Medication Instructions Recorded Confirmed Type Carvedilol [Coreg] 3.125 mg PO BID 04/13/14 03/25/20 History Gabapentin [Neurontin] 300 mg PO BID 04/13/14 03/25/20 History Hydrocodone Bit/Acetaminophen 1 - 2 tab PO Q6H PRN 04/13/14 03/25/20 History [HYDROcodone Bit/Acetaminophen] glipiZIDE [Glucotrol] 5 mg PO BID-AC 04/13/14 03/25/20 History HumaLOG [HumaLOG Vial] 0 unit SC AC PRN 09/27/17 02/05/18 History Insulin Glargine,Hum.Rec.Anlog 20 units SQ BID 09/27/17 03/25/20 History [Lantus] Furosemide [Lasix] 40 mg PO DAILY-AC #30 tab 02/07/18 03/25/20 Rx Clopidogrel Bisulfate [Clopidogrel] 75 mg PO DAILY 03/25/20 03/25/20 History Diclofenac Sodium 75 mg PO BID PRN 03/25/20 03/25/20 History Insulin Lispro [Insulin Lispro 0 units SC ACHS 03/25/20 03/25/20 History Kwikpen U-100] Lisinopril [Zestril] 2.5 mg PO DAILY 03/25/20 03/25/20 History Rosuvastatin [Crestor] 20 mg PO DAILY 03/25/20 03/25/20 History Sertraline HCl 100 mg PO DAILY 03/25/20 03/25/20 History Past History: PMHx: Spina bifida, urinary incontinence PSHx: Colostomy, bilateral BKA FHx: None of significant Social: Lives with his mother He is a chronic smoker. He does not use alcohol or illicit drugs. Hospitalist HPI ROS Constitutional: reports: weakness, malaise. denies: fever, chills, sweats Respiratory: reports: cough, dry. denies: shortness of breath, hemoptysis, SOB with excertion, pleuritic pain Cardiovascular: denies: chest pain, palpitations, orthopnea, paroxysmal noc. dyspnea Gastrointestinal: denies: nausea, vomiting, abdominal pain, diarrhea Genitourinary: denies: dysuria, frequency, incontinence, hematuria Musculoskeletal: reports: back pain. denies: neck pain, shoulder pain, arm pain Neurological: reports: weakness. denies: numbness, incoordination, change in speech, confusion, seizures All other systems reviewed; all pertinent +/- noted in HPI/Subj Hospitalist Exam Vitals: Vital Signs (12 hours) Temp Pulse Resp BP Pulse Ox 03/25/20 00:39 97.8 F 66 16 130/64 98 General Appearance: awake alert General - other findings: In no acute distress, severely obese Eye: PERRL ENT: normocephalic atraumatic Heart: RRR, no murmur, no gallops, normal peripheral pulses Respiratory: CTAB, no wheezes, no rales, no ronchi Gastrointestinal: soft, normal bowel sounds, no hepatomegaly, no splenomegaly, no guarding Gastrointestinal - other findings: Colostomy bag in place, possible ventral wall hernia. Extremities: no cyanosis, no clubbing Extremities - other findings: BKA bilaterally Skin - other findings: Sacral skin broken with deep extending wounds bilaterally. Malodorous disc Neurological: cranial nerve grossly intact, no focal deficits Hospitalist Results Result Diagrams: 03/25/20 05:37 03/24/20 19:59 Lab results: Laboratory Last Values WBC 17.3 thou/uL (4.8-10.8) H 03/24/20 19:59 RBC 4.83 mill/uL (4.70-6.10) 03/24/20 19:59 Hgb 13.6 g/dL (14.0-18.0) L 03/24/20 19:59 Hct 40.3 % (42.0-52.0) L 03/24/20 19:59 MCV 83.5 fL (78.0-98.0) 03/24/20 19:59 MCH 28.0 pg (27.0-31.0) 03/24/20 19:59 MCHC 33.6 g/dL (32.0-36.0) 03/24/20 19:59 RDW 14.6 % (11.5-14.5) H 03/24/20 19:59 Plt Count 290 thou/uL (130-400) 03/24/20 19:59 MPV 7.3 fL (7.4-10.4) L 03/24/20 19:59 Neutrophils % 78.0 % (42.0-75.0) H 03/24/20 19:59 Lymphocytes % 16.8 % (21.0-51.0) L 03/24/20 19:59 Monocytes % 4.3 % (0.0-10.0) 03/24/20 19:59 Eosinophils % 0.8 % (0.0-10.0) 03/24/20 19:59 Basophils % 0.1 % (0.0-1.0) 03/24/20 19:59 Neutrophils # 13.5 thou/uL (1.40-6.50) H 03/24/20 19:59 Lymphocytes # 2.9 thou/uL (1.20-3.40) 03/24/20 19:59 Monocytes # 0.7 thou/uL (0.11-0.59) H 03/24/20 19:59 Eosinophils # 0.1 thou/uL (0.0-0.7) 03/24/20 19:59 Basophils # 0.0 thou/uL (0.0-0.2) 03/24/20 19:59 Sodium 135 mmol/L (136-145) L 03/24/20 19:59 Potassium 3.6 mmol/L (3.5-5.1) 03/24/20 19:59 Chloride 101 mmol/L (98-107) 03/24/20 19:59 Carbon Dioxide 23 mmol/L (22-29) 03/24/20 19:59 Anion Gap 15 mmol/L (10-20) 03/24/20 19:59 BUN 10 mg/dL (8.4-25.7) 03/24/20 19:59 Creatinine 0.84 mg/dL (0.7-1.3) 03/24/20 19:59 Estimated GFR (MDRD) Greater than 90 03/24/20 19:59 Glucose 181 mg/dL (70-105) H 03/24/20 19:59 Lactic Acid 1.1 mmol/L (0.5-2.2) 03/24/20 19:59 Calcium 9.0 mg/dL (7.8-10.44) 03/24/20 19:59 Total Bilirubin 0.2 mg/dL (0.2-1.2) 03/24/20 19:59 AST 11 U/L (5-34) 03/24/20 19:59 ALT 10 U/L (8-55) 03/24/20 19:59 Alkaline Phosphatase 75 U/L (40-110) 03/24/20 19:59 Serum Total Protein 7.2 g/dL (6.0-8.3) 03/24/20 19:59 Albumin 3.6 g/dL (3.5-5.0) 03/24/20 19:59 Globulin 3.6 g/dL (2.4-3.5) H 03/24/20 19:59 Albumin/Globulin Ratio 1.0 g/dL (1.2-2.2) L 03/24/20 19:59 Urine Color Yellow (Yellow) 03/24/20 20:33 Urine Clarity Extra Turbid (Clear) A 03/24/20 20: Urine pH 7.0 (5.0-9.0) 03/24/20 20: Ur Specific [place] 1.009 (1.002-1.036) 03/24/20 20: Urine Protein Negative mg/dL (Neg-Trace) 03/24/20 20: Urine Glucose (UA) Normal mg/dL (Negative) 03/24/20 20: Urine Ketones Negative mg/dL (Negative) 03/24/20: Urine Blood Negative (Negative) 03/24/20 20: Urine Nitrite 1+ (Negative) A 03/24/20: Urine Bilirubin Negative (Negative) 03/24/20: Urine Urobilinogen Normal mg/dL (Less than 2) 03/24/20: Ur Leukocyte Esterase 500 Radha/uL (Negative) A 03/24/20: Urine RBC 0-3 HPF (0-3) 03/24/20: Urine WBC Greater than 50 HPF (0-3) A 03/24/20 20: Ur Squamous Epith Cells 0-3 HPF (0-3) 03/24/20 20: Amorphous Crystals 2+ HPF (None Seen) A 03/24/20 20: Urine Bacteria 2+ HPF (None Seen) A 03/24/20 20: Hyaline Casts 0-3 LPF (0-3) 03/24/20 20:33 Granular Casts 0-3 LPF (None Seen) A 03/24/20 20:33 Hospitalist H&P A/P Plan: This a 54-year-old male patient with a history of BKA, chronic indwelling catheter, colostomy with chronic sacral wound presenting with worsening wounds with increased malodorous Drainage concerns for wound infection and possible sepsis. Chronic sacral wound infection Started on antibiotics vancomycin and clindamycin Will continue antibiotics with Vanco and Zosyn Wound care and monitor Consider ID assistance in antibiotic management. Surgical consult in a.m. Catheter associated urinary tract infection Started on antibiotics above We will continue as above Follow-up culture results and downgrade antibiotics as needed. Chronic indwelling catheter Replace Monitor Colostomy Colostomy management. Chronic cough Patient is a chronic smokercheck chest x-ray to rule out any infiltrates Covered on antibiotics above. Recent Covid infection We will monitor. History of CHF Unclear EF since last echocardiogram not opening up in Adstrix. Currently not volume overloaded We will monitorrestrict fluid. Tobacco abuse Needs counseled on smoke cessation VT prophylaxisLovenox CODE STATUSfull code
[2020-03-25] MEDS ORDERED: Sodium Chloride 0.9% 1,000 ML IV SCH (02:45)
[2020-03-25] MEDS: HYDROcodone/Acetaminophen 5/325 mg Tablet PO PRN ×2 (04:00→10:39)
[2020-03-25] MEDS: Piperacillin/Tazobactam 4.5 GM in Sodium Chloride 0.9% 100 ML IVPB SCH ×4 (04:01→22:03)
[2020-03-25] MEDS: Sodium Chloride 0.9% 1,000 ML IV SCH ×2 (04:01→19:34)
[2020-03-25 05:01] VITALS: BMI 83.7
[2020-03-25] MEDS: Vancomycin 1.5 GRAM/300 ML BAG 1.5 GM in Premix Bag 1 BAG IVPB SCH ×2 (06:05→19:19)
[2020-03-25 06:09] LABS: #Eosinphils 0.2 thou/uL (0.0-0.7); #Monocytes 0.6 thou/uL (0.11-0.59); %Basophils 0.2 % (0.0-1.0); %Lymphocytes 18.2 % (21.0-51.0); %Monocytes 5.2 % (0.0-10.0); %Neutrophils 74.3 % (42.0-75.0); Hemoglobin 12.2 g/dL (14.0-18.0); Mean Corpuscular HGB CONC 32.2 g/dL (32.0-36.0); Mean Corpuscular Hemoglobin 26.6 pg (27.0-31.0); Mean Corpuscular Volume 82.4 fL (78.0-98.0); Mean Platelet Volume 7.4 fL (7.4-10.4); Platelet Count 242 thou/uL (130-400); RBC Distribution Width 14.6 % (11.5-14.5); Red Blood Cell (RBC) Count 4.58 mill/uL (4.70-6.10); White Blood Cell (WBC) Count 10.8 thou/uL (4.8-10.8)
[2020-03-25 06:31] LABS: Anion Gap 13 mmol/L (10-20); BUN (Urea Nitrogen) 10 mg/dL (8.4-25.7); Calc. Creatinine Clearance 190 mL/min (70-130); Calcium 7.9 mg/dL (7.8-10.44); Carbon Dioxide 21 mmol/L (22-29); Chloride 106 mmol/L (98-107); Glucose 179 mg/dL (70-105); Potassium 3.5 mmol/L (3.5-5.1); Sodium 136 mmol/L (136-145)
[2020-03-25] MEDS ORDERED: Dextrose 5% in Water 1,000 ML IV PRN (08:00)
[2020-03-25] MEDS ORDERED: Dextrose 50% Abboject 50 ML SYRINGE IVP PRN (08:00)
[2020-03-25] MEDS ORDERED: HumaLOG 300 UNITS/3 ML VIAL SC PRN (08:00)
--- NOTE | 2020-03-25 08:23 | RAD ---
XR Chest 1 View HISTORY: Covid pneumonia COMPARISON: 04/14/2014 study FINDINGS: Heart size and mediastinum are within normal limits. Some increased interstitial markings i n the bases could represent minimal infiltrate versus atelectasis. IMPRESSION: Linear interstitial changes in lung bases consistent with atelectasis versus minimal infi ltrate
[2020-03-25 08:57] LABS: SARS-CoV-2 NAA Rapid Test Not Detected (NotDetected)
[2020-03-25] MEDS: HumaLOG 300 UNITS/3 ML VIAL SC PRN (14:04)
[2020-03-25] MEDS ORDERED: ALPRAZolam 0.5 MG TAB PO PRN (16:00)
[2020-03-26] MEDS: Sodium Chloride 0.9% 1,000 ML IV SCH ×2 (00:09→18:09)
[2020-03-26] MEDS: HYDROcodone/Acetaminophen 5/325 mg Tablet PO PRN ×3 (00:12→16:55)
[2020-03-26] MEDS: Piperacillin/Tazobactam 4.5 GM in Sodium Chloride 0.9% 100 ML IVPB SCH ×4 (04:07→21:43)
[2020-03-26] MEDS: Vancomycin 1.5 GRAM/300 ML BAG 1.5 GM in Premix Bag 1 BAG IVPB SCH ×2 (06:16→18:09)
[2020-03-26] MEDS: Lisinopril 2.5 MG TAB PO SCH (11:07)
[2020-03-26] MEDS: Carvedilol 3.125 MG TAB PO SCH ×2 (11:08→21:43)
[2020-03-26 13:31] LABS: Hemoglobin A1c 7.9 % (4.0-6.0)
--- NOTE | 2020-03-26 13:41 | PDOC.HOSPP ---
- Subjective Encounter Date: 03/26/20 Subjective: No acute events overnight. Patient is afebrile. Mental status at baseline and does not appear to be in any distress. - Objective Vital Signs & Weight: Vital Signs (12 hours) Temp Pulse Resp BP Pulse Ox 03/26/20 11:07 63 03/26/20 08:00 98.4 F 63 16 98 03/26/20 04:00 98.0 F 62 16 161/74 H 96 Weight Weight 274 lb 3.2 oz I&O: 03/25/20 03/26/20 03/27/20 06:59 06:59 06:59 Intake Total 1180 Output Total 450 Balance 730 Result Diagrams: 03/25/20 05:37 03/25/20 05:37 Additional Labs: Accuchecks 03/26/20 03/26/20 03/25/20 12:12 05:58 21:09 POC Glucose 216 H 166 H 192 H 03/25/20 15:54 POC Glucose 170 H Hospitalist ROS - Medication Medications: Active Medications Generic Name Dose Route Start Last Admin Trade Name Freq PRN Reason Stop Dose Admin Hydrocodone Bitart/Acetaminophen 1 tab 03/25/20 02:39 03/26/20 11:57 Hydrocodone/Acetaminophen 5/325 Mg Tablet PO 1 tab Q4H PRN Administration Moderate Pain (4-6) Alprazolam 0.5 mg 03/25/20 16:00 03/25/20 17:40 Alprazolam 0.5 Mg Tab PO 0.5 mg TID PRN Administration Anxiety/Agitation Carvedilol 3.125 mg 03/26/20 09:00 03/26/20 11:08 Carvedilol 3.125 Mg Tab PO 3.125 mg BID MADHU Administration Piperacillin Sod/Tazobactam 100 mls @ 200 mls/hr 03/25/20 04:00 03/26/20 11:09 Sod 4.5 gm/ Sodium Chloride IVPB 100 mls 0400,1000,1600,2200 MADHU Administration Vancomycin HCl 1.5 gm/ Device 300 mls @ 200 mls/hr 03/25/20 06:00 03/26/20 06:16 IVPB 300 mls 0600,1800 MADHU Administration Sodium Chloride 1,000 mls @ 75 mls/hr 03/25/20 04:00 03/26/20 00:09 Normal Saline 0.9% IV 1,000 mls .[id number] MADHU Administration Insulin Human Lispro 0 units 03/25/20 08:00 03/25/20 14:04 Humalog 300 Units/3 Ml Vial SC 2 unit .MILD SLIDING SCALE PRN Administration MILD SLIDING SCALE Protocol Lisinopril 2.5 mg 03/26/20 09:00 03/26/20 11:07 Lisinopril 2.5 Mg Tab PO 2.5 mg DAILY MADHU Administration Sodium Chloride 10 ml 03/25/20 09:00 03/26/20 11:08 Flush - Normal Saline 10 Ml Syringe IVF 10 ml Q12HR MADHU Administration Hospitalist Exam Vitals: Vital Signs (12 hours) Temp Pulse Resp BP Pulse Ox 03/26/20 11:07 63 03/26/20 08:00 98.4 F 63 16 98 03/26/20 04:00 98.0 F 62 16 161/74 H 96 Weight Weight 274 lb 3.2 oz General Appearance: NAD, awake alert Eye: anicteric sclera ENT: normocephalic atraumatic Neck: supple Heart: RRR, no murmur, no gallops, no rubs Respiratory: CTAB, no wheezes, no rales, no ronchi Gastrointestinal: soft, non-tender, non-distended, normal bowel sounds Gastrointestinal - other findings: Hernia. Colostomy bag in place. Tyler catheter in place Extremities: no clubbing, no edema Extremities - other findings: Bilateral BKA Psychiatric: normal affect, normal behavior Hosp A/P (1) Chronic indwelling Tyler catheter Code(s): Z97.8 - PRESENCE OF OTHER SPECIFIED DEVICES Status: Acute (2) Sacral decubitus ulcer Code(s): L89.159 - PRESSURE ULCER OF SACRAL REGION, UNSPECIFIED STAGE Status: Acute (3) Wound infection Code(s): T14.8XXA - OTHER INJURY OF UNSPECIFIED BODY REGION, INITIAL ENCOUNTER; L08.9 - LOCAL INFECTION OF THE SKIN AND SUBCUTANEOUS TISSUE, UNSP Status: Acute (4) CAD (coronary artery disease) Code(s): I25.10 - ATHSCL HEART DISEASE OF [place] CORONARY ARTERY W/O ANG PCTRS Status: Chronic (5) Colostomy in place Code(s): Z93.3 - COLOSTOMY STATUS Status: Chronic (6) Diabetes mellitus type 2 in obese Code(s): E11.69 - TYPE 2 DIABETES MELLITUS WITH OTHER SPECIFIED COMPLICATION; E66.9 - OBESITY, UNSPECIFIED Status: Chronic (7) Neurogenic bladder Code(s): N31.9 - NEUROMUSCULAR DYSFUNCTION OF BLADDER, UNSPECIFIED Status: Chronic (8) Spina bifida Code(s): Q05.9 - SPINA BIFIDA, UNSPECIFIED Status: Chronic - Plan Assessment Patient is a 54-year-old male with a known history of congenital spina bifida, status post BKA for chronic bilateral lower extremity wounds, sacral wound infection due to restricted mobility. He also has indwelling Tyler catheter neurogenic bladder and diverting colostomy. Was brought into the ER at home concerned by his niece after his niece noticed infection of his sacral wounds. He had a WBC of 17 upon admission. Did not meet sepsis criteria upon admission. His leukocytosis resolved with vancomycin and Zosyn. Is pending evaluation by wound care nurse. Sacral wound infection Final bifida Neurogenic bladder status Chronic indwelling Tyler Colostomy bag status Hypertension Coronary artery disease Type 2 diabetes mellitus -A1c of 7.9 during this admission Plan: Continue broad-spectrum antibiotics Follow-up recommendation from wound care Resume home dose of Coreg and lisinopril due to high blood pressure Patient to be discharged when cleared by wound care Continue insulin sliding scale Tyler and colostomy care as per nursing
[2020-03-26] MEDS: HumaLOG 300 UNITS/3 ML VIAL SC PRN ×2 (14:47→18:15)
[2020-03-26] MEDS: Ondansetron PF 4 MG/2 ML Vial IVP PRN (16:49)
[2020-03-27] MEDS: Piperacillin/Tazobactam 4.5 GM in Sodium Chloride 0.9% 100 ML IVPB SCH ×2 (04:13→09:28)
[2020-03-27] MEDS: HYDROcodone/Acetaminophen 5/325 mg Tablet PO PRN ×2 (04:13→09:28)
[2020-03-27] MEDS: Ondansetron PF 4 MG/2 ML Vial IVP PRN (04:13)
[2020-03-27] MEDS: Vancomycin 1.5 GRAM/300 ML BAG 1.5 GM in Premix Bag 1 BAG IVPB SCH (06:25)
[2020-03-27] MEDS: HumaLOG 300 UNITS/3 ML VIAL SC PRN ×2 (06:25→11:42)
[2020-03-27 08:30] VITALS: BP 134/63; TEMP 97.8
[2020-03-27] MEDS: Lisinopril 2.5 MG TAB PO SCH (09:28)
[2020-03-27] MEDS: Carvedilol 3.125 MG TAB PO SCH (09:28)
[2020-03-27] MEDS: Sodium Chloride 0.9% 1,000 ML IV SCH (11:42)
--- NOTE | 2020-03-27 12:59 | PDOC.DS.DS ---
Provider Date of Admission: 03/24/20 21:48 Date of Discharge: 03/27/20 Admitting Provider: Zain Cueva MD Primary Care Physician: Unknown Course Hospital Course: Patient is a 54-year-old male with a past medical history of congenital spina bifida, bilateral lower extremity wound status post bilateral BKA, neuro genic bladder with chronic indwelling Martin, and diverting colostomy. Has chronic sacral wound ulcers given restricting mobility. Resented due to concern of wound infection. White count was 17 on admission but he did not meet sepsis criteria. He responded well to broad-spectrum antibiotics. Wound care was involved for treatment and evaluation. Patient has done well throughout this hospitalization. He will be discharged on a short course of Flagyl and levofloxacin. Dressing change and wound care recommendations will be given upon discharge. Otherwise, his hospital course has been unremarkable. Resuscitation Status: 03/25/20 02:39 Resuscitation Status Routine Resuscitation Status: FULL: Full Resuscitation Lab Results: 03/25/20 05:37 03/25/20 05:37 Abnormal Lab Results - Last 48 hrs 03/26/20 13:15: Hemoglobin A1c 7.9 H Microbiology - Entire Visit 03/24/20 20:33 Urine martin catheter Urine Culture - Final Gram Negative Srinath Gram Negative Srinath#2 Beta-hemolytic Streptococcus 03/24/20 19:59 Venous blood - Left Hand Blood Culture - Preliminary NO GROWTH AT 48 HOURS 03/24/20 19:59 Venous blood - Left Hand Blood Culture - Preliminary NO GROWTH AT 48 HOURS Vitals: Vital Signs (12 hours) Temp Pulse Resp BP Pulse Ox 03/27/20 09:28 61 03/27/20 08:00 97.8 F 61 18 134/63 97 Weight Admit Weight 274 lb 3.2 oz Weight 274 lb 3.2 oz Physical Exam: The patient was seen and examined on the day of discharge. General Appearance: NAD, awake alert Eye: anicteric sclera ENT: normocephalic atraumatic Neck: supple Respiratory: CTAB, no wheezes, no rales, no ronchi Cardiovascular: RRR, no murmur, no gallops, no rubs Gastrointestinal: soft, non-tender, non-distended Gastrointestinal - other findings: Colostomy in place with viable stoma Extremities: no edema Extremities - other findings: Bilateral BKA PSYCH: normal affect, normal behavior Problem Assessment: Please refer to hospital course (1) Chronic indwelling Martin catheter Code(s): Z97.8 - PRESENCE OF OTHER SPECIFIED DEVICES Status: Acute (2) Sacral decubitus ulcer Code(s): L89.159 - PRESSURE ULCER OF SACRAL REGION, UNSPECIFIED STAGE Status: Acute (3) Wound infection Code(s): T14.8XXA - OTHER INJURY OF UNSPECIFIED BODY REGION, INITIAL ENCOUNTER; L08.9 - LOCAL INFECTION OF THE SKIN AND SUBCUTANEOUS TISSUE, UNSP Status: Acute (4) CAD (coronary artery disease) Code(s): I25.10 - ATHSCL HEART DISEASE OF [place] CORONARY ARTERY W/O ANG PCTRS Status: Chronic (5) Colostomy in place Code(s): Z93.3 - COLOSTOMY STATUS Status: Chronic (6) Diabetes mellitus type 2 in obese Code(s): E11.69 - TYPE 2 DIABETES MELLITUS WITH OTHER SPECIFIED COMPLICATION; E66.9 - OBESITY, UNSPECIFIED Status: Chronic (7) Neurogenic bladder Code(s): N31.9 - NEUROMUSCULAR DYSFUNCTION OF BLADDER, UNSPECIFIED Status: Chronic (8) Spina bifida Code(s): Q05.9 - SPINA BIFIDA, UNSPECIFIED Status: Chronic Plan Prescriptions: metroNIDAZOLE [Flagyl] 500 mg PO Q8HR #12 tab Levofloxacin 750 mg PO DAILY #4 tablet Home Medications: Medication Instructions Recorded Confirmed Type Carvedilol [Coreg] 3.125 mg PO BID 04/13/14 03/25/20 History Gabapentin [Neurontin] 300 mg PO BID 04/13/14 03/25/20 History Hydrocodone Bit/Acetaminophen 1 - 2 tab PO Q6H PRN 04/13/14 03/25/20 History [HYDROcodone Bit/Acetaminophen] HumaLOG [HumaLOG Vial] 0 unit SC AC PRN 09/27/17 03/25/20 History Insulin Glargine,Hum.Rec.Anlog 20 units SQ BID 09/27/17 03/25/20 History [Lantus] Furosemide [Lasix] 40 mg PO DAILY-AC #30 tab 02/07/18 03/25/20 Rx Clopidogrel Bisulfate [Clopidogrel] 75 mg PO DAILY 03/25/20 03/25/20 History Diclofenac Sodium 75 mg PO BID PRN 03/25/20 03/25/20 History Insulin Lispro [Insulin Lispro 0 units SC ACHS 03/25/20 03/25/20 History Kwikpen U-100] Lisinopril [Zestril] 2.5 mg PO DAILY 03/25/20 03/25/20 History Rosuvastatin [Crestor] 20 mg PO DAILY 03/25/20 03/25/20 History Sertraline HCl 100 mg PO DAILY 03/25/20 03/25/20 History ALPRAZolam [Xanax] 0.5 mg PO TID PRN tab 03/27/20 Rx Levofloxacin 750 mg PO DAILY #4 tablet 03/27/20 Rx metroNIDAZOLE [Flagyl] 500 mg PO Q8HR #12 tab 03/27/20 Rx Allergies: ceftriaxone [From Rocephin] Allergy (Verified 03/25/20 02:03) tramadol Allergy (Verified 03/25/20 02:03) BROCCOLI Allergy (Uncoded 04/30/19 00:32) Discharge Instructions:: Discharge wound care instructions: clean with saline, pack deep wound with collagen dressing, and lay collagen dressing on 2 superficial wounds. Cover with foam dressing. Change every 3 days. Referrals: Unknown,Unknown [Primary Care Provider] - Disposition: HOME Quality CORE MEASURES:: N/A
--- NOTE | 2020-03-27 21:20 | EKG ---
Test Reason : Blood Pressure : / mmHG Vent. Rate : 058 BPM Atrial Rate : 058 BPM P-R Int : 186 ms QRS Dur : 096 ms QT Int : 424 ms P-R-T Axes : 035 -57 050 degrees QTc Int : 416 ms Sinus bradycardia Left axis deviation Low voltage QRS Inferior infarct , age undetermined Anteroseptal infarct , age undetermined Abnormal ECG No previous ECGs available Confirmed by GENNARO CLEMONS, DR. Bernstein ([id number]) on 03/27/2020 9:20:05 PM Referred By: SUDHEER Confirmed By:DR. Amandeep BURDICK MD
== END 2020-03-27 14:30 | disposition home or self-care (01) | DRG 593 ==
LOC: ERS 19:00 → ONC 21:48
PROVIDERS: ADMIT Student in an Organized Health Care Education/Training Program; ATTEND Internal Medicine
DX: L89.152 Pressure ulcer of sacral region, stage 2 (principal); T83.511A Infection and inflammatory reaction due to indwelling urethral catheter, initial encounter; N39.0 Urinary tract infection, site not specified; Z68.45 Body mass index [BMI] 70 or greater, adult; Z20.822 Contact with and (suspected) exposure to COVID-19; I25.10 Atherosclerotic heart disease of native coronary artery without angina pectoris; E11.9 Type 2 diabetes mellitus without complications; N31.9 Neuromuscular dysfunction of bladder, unspecified; E78.5 Hyperlipidemia, unspecified; E78.00 Pure hypercholesterolemia, unspecified; F41.9 Anxiety disorder, unspecified; F32.9 Major depressive disorder, single episode, unspecified; F17.210 Nicotine dependence, cigarettes, uncomplicated; I50.9 Heart failure, unspecified; L89.324 Pressure ulcer of left buttock, stage 4; B95.4 Other streptococcus as the cause of diseases classified elsewhere; Y84.6 Urinary catheterization as the cause of abnormal reaction of the patient, or of later complication, without mention of misadventure at the time of the procedure; R05 Cough; E66.9 Obesity, unspecified; Z93.3 Colostomy status; Q05.9 Spina bifida, unspecified; I25.2 Old myocardial infarction; Z88.4 Allergy status to anesthetic agent; Z88.1 Allergy status to other antibiotic agents; Z91.018 Allergy to other foods; Z79.899 Other long term (current) drug therapy; Z79.4 Long term (current) use of insulin; Z79.02 Long term (current) use of antithrombotics/antiplatelets; Z89.512 Acquired absence of left leg below knee; Z89.511 Acquired absence of right leg below knee; Z86.16 Personal history of COVID-19
CPT/HCPCS: 36415; 36416; 71045; 80048; 80053; 81003; 81015; 83036; 83605; 85025; 87040; 87086; 93005; 93010; 96365; 96367; 96375; J1815; J1885; J2405; J2543; J3370; J3490; U0002

== ENCOUNTER 2021-06-22 09:39 | Inpatient (IN) | payer MEDICARE, OTHER ==
[~2021-06-22 09:39] MED LIST changes: -Heparin 1,000 UNITS/ML VIAL ONE; -ISOVUE-370 76%-LOCM 1 ML ONE; +Iopamidol 370 76% 100 ML VIAL ONE
[2021-06-22 11:05] LABS: Bilirubin Negative (Negative); Blood, Urine 2+ (Negative); Clarity Extra Turbid (Clear); Glucose, Urine (Dipstick) Normal (Negative); Ketone, Urine Negative (Negative); Leukocyte 500 Leu/uL (Negative); Nitrite 2+ (Negative); Protein, Urine (Dipstick) 100 mg/dL (Neg-Trace); RBC/HPF 21-50 HPF (0-3); Specific Gravity, Urine 1.012 (1.002-1.036); Squamous Epithelial 0-3 HPF (0-3); Urobilinogen Normal mg/dL (Less than 2); WBC/HPF Greater than 50 HPF (0-3); pH, Urine 7.5 (5.0-9.0)
[2021-06-22 11:14] LABS: Bacteria/HPF 3+ HPF (None Seen)
[2021-06-22 11:18] LABS: Hemoglobin 14.4 g/dL (14.0-18.0); Mean Corpuscular HGB CONC 32.1 g/dL (32.0-36.0); Mean Corpuscular Hemoglobin 27.5 pg (27.0-31.0); Mean Corpuscular Volume 85.9 fL (78.0-98.0); Mean Platelet Volume 7.4 fL (7.4-10.4); Platelet Count 215 thou/uL (130-400); RBC Distribution Width 13.9 % (11.5-14.5); Red Blood Cell (RBC) Count 5.23 mill/uL (4.70-6.10); White Blood Cell (WBC) Count 22.2 thou/uL (4.8-10.8)
[2021-06-22 11:34] LABS: Band 6 % (5-11); Lymphocytes 3 % (21-51); MDiff Complete? YES; Monocytes 3 % (0-10); Neutrophil 87 % (42-75); Platelet Morphology Comment Appears Adequate; Polychromasia SLIGHT = 2-3 cells (100X) (0-2/hpf); Reactive Lymphocytes 1 % (0-10)
[2021-06-22 11:47] LABS: ALT (SGPT) 10 U/L (8-55); AST (SGOT) 11 U/L (5-34); Albumin 3.9 g/dL (3.5-5.0); Alkaline Phosphatase 90 U/L (40-110); Anion Gap 15 mmol/L (10-20); BUN (Urea Nitrogen) 7 mg/dL (8.4-25.7); Bilirubin, Total 0.7 mg/dL (0.2-1.2); Calc. Creatinine Clearance 0 mL/min (70-130); Calcium 9.2 mg/dL (7.8-10.44); Carbon Dioxide 21 mmol/L (22-29); Chloride 101 mmol/L (98-107); Globulin 3.4 g/dL (2.4-3.5); Glucose 163 mg/dL (70-105); Lipase 11 U/L (8-78); Potassium 3.7 mmol/L (3.5-5.1); Protein, Total 7.3 g/dL (6.0-8.3); Sodium 133 mmol/L (136-145)
[2021-06-22] MEDS ORDERED: Morphine 4 MG/ML VIAL ONE (12:01)
[2021-06-22] MEDS ORDERED: Acetaminophen 650 MG Suppository PR PRN (12:50)
[2021-06-22] MEDS ORDERED: Lorazepam 1 MG TAB PO SCH (13:55)
[2021-06-22] MEDS ORDERED: Dextrose 50% Abboject 50 ML SYRINGE SLOW IVP PRN (13:58)
[2021-06-22] MEDS ORDERED: Dextrose 5% in Water 1,000 ML IV PRN (13:58)
[2021-06-22] MEDS ORDERED: Lorazepam 1 MG TAB ONE (14:00)
[2021-06-22] MEDS ORDERED: Acetaminophen 325 MG TAB ONE (14:26)
[2021-06-22] MEDS ORDERED: Sodium Chloride 0.9% 1,000 ML IV SCH (16:30)
[2021-06-22 17:08] LABS: Hemoglobin 13.7 g/dL (14.0-18.0); Mean Corpuscular HGB CONC 32.4 g/dL (32.0-36.0); Mean Corpuscular Volume 86.5 fL (78.0-98.0); Mean Platelet Volume 7.8 fL (7.4-10.4); Platelet Count 206 thou/uL (130-400); RBC Distribution Width 14.1 % (11.5-14.5); Red Blood Cell (RBC) Count 4.88 mill/uL (4.70-6.10); White Blood Cell (WBC) Count 24.9 thou/uL (4.8-10.8)
[2021-06-22] MEDS ORDERED: Vancomycin 1 GM in Premix Bag 1 BAG IVPB SCH (17:15)
[2021-06-22 17:26] LABS: Band 14 % (5-11); MDiff Complete? YES; Monocytes 3 % (0-10); Neutrophil 82 % (42-75); Platelet Morphology Comment Appears Adequate; RBC Morphology Normal; Reactive Lymphocytes 1 % (0-10)
[2021-06-22 17:30] LABS: Lactic Acid 1.3 mmol/L (0.5-2.2)
[2021-06-22] MEDS: HumaLOG 300 UNITS/3 ML VIAL SC PRN ×2 (17:30→20:59)
[2021-06-22 17:34] LABS: Anion Gap 15 mmol/L (10-20); BUN (Urea Nitrogen) 7 mg/dL (8.4-25.7); Calc. Creatinine Clearance 147 mL/min (70-130); Calcium 8.8 mg/dL (7.8-10.44); Carbon Dioxide 20 mmol/L (22-29); Chloride 103 mmol/L (98-107); Glucose 174 mg/dL (70-105); Magnesium 1.8 mg/dL (1.6-2.6); Potassium 3.3 mmol/L (3.5-5.1); Sodium 135 mmol/L (136-145)
[2021-06-22] MEDS ORDERED: Potassium Chloride 20 MEQ TAB PO SCH (18:30)
[2021-06-22] MEDS ORDERED: Norepinephrine 8 MG/0.9% NS 250 ML IVPB SCH (18:30)
[2021-06-22] MEDS ORDERED: Meropenem 1 GM in Sodium Chloride 0.9% 100 ML IVPB SCH (18:45)
[2021-06-22] MEDS ORDERED: Vancomycin 1.5 GRAM/300 ML BAG 1.5 GM in Premix Bag 1 BAG IVPB SCH (19:00)
[2021-06-22] MEDS ORDERED: Midodrine HCl 5 MG TAB PO SCH (19:00)
[2021-06-22] MEDS ORDERED: VANCOMYCIN 1.75 GM/500 ML BAG 1.75 GM in Premix Bag 1 BAG IVPB SCH (19:00)
[2021-06-22] MEDS ORDERED: VANCOMYCIN 1.75 GM/350 ML BAG 1.75 GM in Premix Bag 1 BAG IVPB SCH (19:00)
[2021-06-22] MEDS: Heparin 5,000 UNITS/ML VIAL SC SCH (20:40)
[2021-06-22] MEDS ORDERED: Carvedilol 3.125 MG TAB PO SCH (21:00)
[2021-06-23 00:10] LABS: Hemoglobin A1c 7.3 % (4.0-6.0)
[2021-06-23 00:15] LABS: Cardiac Risk 3.1 (Less than 4.5)
[2021-06-23] MEDS: Acetaminophen 325 MG TAB PO PRN ×2 (00:27→21:32)
[2021-06-23] MEDS: Ondansetron PF 4 MG/2 ML Vial IVP PRN ×3 (00:27→21:32)
[2021-06-23 00:52] LABS: SARS-CoV-2 PCR by NAA Not Detected (NotDetected)
[2021-06-23] MEDS: Meropenem 1 GM in Sodium Chloride 0.9% 100 ML IVPB SCH ×3 (02:21→19:48)
[2021-06-23 03:58] LABS: #Lymphocytes 1.1 thou/uL (1.20-3.40); #Neutrophils 18.2 thou/uL (1.40-6.50); %Eosinophils 0.1 % (0.0-10.0); %Lymphocytes 5.4 % (21.0-51.0); %Monocytes 4.8 % (0.0-10.0); %Neutrophils 89.7 % (42.0-75.0); Hemoglobin 12.4 g/dL (14.0-18.0); Mean Corpuscular HGB CONC 32.7 g/dL (32.0-36.0); Mean Corpuscular Hemoglobin 28.3 pg (27.0-31.0); Mean Corpuscular Volume 86.7 fL (78.0-98.0); Mean Platelet Volume 7.7 fL (7.4-10.4); Platelet Count 187 thou/uL (130-400); RBC Distribution Width 13.9 % (11.5-14.5); Red Blood Cell (RBC) Count 4.38 mill/uL (4.70-6.10); White Blood Cell (WBC) Count 20.3 thou/uL (4.8-10.8)
[2021-06-23 04:25] LABS: Anion Gap 14 mmol/L (10-20); BUN (Urea Nitrogen) 9 mg/dL (8.4-25.7); Calc. Creatinine Clearance 149 mL/min (70-130); Calcium 8.4 mg/dL (7.8-10.44); Carbon Dioxide 21 mmol/L (22-29); Chloride 106 mmol/L (98-107); Glucose 213 mg/dL (70-105); Potassium 3.7 mmol/L (3.5-5.1); Sodium 137 mmol/L (136-145)
[2021-06-23] MEDS: Midodrine HCl 5 MG TAB PO SCH ×2 (04:42→14:46)
[2021-06-23] MEDS: Vancomycin 1.5 GRAM/300 ML BAG 1.5 GM in Premix Bag 1 BAG IVPB SCH (06:01)
[2021-06-23] MEDS: HumaLOG 300 UNITS/3 ML VIAL SC PRN ×2 (06:02→20:03)
[2021-06-23] MEDS: Aspirin 81 mg Enteric Coated Tablet PO SCH (08:33)
[2021-06-23] MEDS: Clopidogrel Bisulfate 75 MG TAB PO SCH (08:33)
[2021-06-23] MEDS: Heparin 5,000 UNITS/ML VIAL SC SCH ×2 (08:33→19:50)
[2021-06-23 18:27] LABS: Vancomycin, Trough 11.9 ug/mL
[2021-06-23] MEDS: Atorvastatin Calcium 20 MG TAB PO SCH (19:49)
[2021-06-23] MEDS: VANCOMYCIN 2 GRAM/500 ML BAG 2 GM in Premix Bag 1 BAG IVPB SCH (19:56)
[2021-06-23] MEDS: Gabapentin 300 MG CAP PO SCH (21:32)
[2021-06-24] MEDS: Meropenem 1 GM in Sodium Chloride 0.9% 100 ML IVPB SCH ×3 (03:08→18:44)
[2021-06-24 04:01] LABS: #Lymphocytes 1.5 thou/uL (1.20-3.40); #Monocytes 0.8 thou/uL (0.11-0.59); %Basophils 0.2 % (0.0-1.0); %Eosinophils 0.4 % (0.0-10.0); %Lymphocytes 12.1 % (21.0-51.0); %Monocytes 6.5 % (0.0-10.0); %Neutrophils 80.9 % (42.0-75.0); Hemoglobin 12.4 g/dL (14.0-18.0); Mean Corpuscular HGB CONC 32.7 g/dL (32.0-36.0); Mean Corpuscular Hemoglobin 28.4 pg (27.0-31.0); Mean Corpuscular Volume 86.9 fL (78.0-98.0); Mean Platelet Volume 7.5 fL (7.4-10.4); Platelet Count 153 thou/uL (130-400); RBC Distribution Width 13.7 % (11.5-14.5); Red Blood Cell (RBC) Count 4.35 mill/uL (4.70-6.10); White Blood Cell (WBC) Count 12.4 thou/uL (4.8-10.8)
[2021-06-24 04:24] LABS: Anion Gap 12 mmol/L (10-20); BUN (Urea Nitrogen) 7 mg/dL (8.4-25.7); Calc. Creatinine Clearance 180 mL/min (70-130); Calcium 8.6 mg/dL (7.8-10.44); Carbon Dioxide 22 mmol/L (22-29); Chloride 105 mmol/L (98-107); Glucose 192 mg/dL (70-105); Potassium 3.5 mmol/L (3.5-5.1); Sodium 135 mmol/L (136-145)
[2021-06-24] MEDS: HumaLOG 300 UNITS/3 ML VIAL SC PRN ×3 (06:17→16:44)
[2021-06-24] MEDS: Ondansetron PF 4 MG/2 ML Vial IVP PRN (06:35)
[2021-06-24] MEDS: VANCOMYCIN 2 GRAM/500 ML BAG 2 GM in Premix Bag 1 BAG IVPB SCH ×2 (08:42→21:10)
[2021-06-24] MEDS: Heparin 5,000 UNITS/ML VIAL SC SCH ×2 (08:42→21:10)
[2021-06-24] MEDS: Gabapentin 300 MG CAP PO SCH ×2 (08:42→21:09)
[2021-06-24] MEDS: Aspirin 81 mg Enteric Coated Tablet PO SCH (08:43)
[2021-06-24] MEDS: Clopidogrel Bisulfate 75 MG TAB PO SCH (08:44)
[2021-06-24] MEDS: glipiZIDE 5 MG TAB PO SCH (16:43)
[2021-06-24] MEDS: Vancomycin 1.5 GRAM/300 ML BAG 1.5 GM in Premix Bag 1 BAG IVPB SCH (18:52)
[2021-06-24] MEDS: Acetaminophen 325 MG TAB PO PRN (21:09)
[2021-06-24] MEDS: Atorvastatin Calcium 20 MG TAB PO SCH (21:09)
[2021-06-25] MEDS: Meropenem 1 GM in Sodium Chloride 0.9% 100 ML IVPB SCH ×3 (02:05→18:08)
[2021-06-25] MEDS: HumaLOG 300 UNITS/3 ML VIAL SC PRN ×2 (06:18→20:16)
[2021-06-25 06:52] LABS: #Eosinphils 0.1 thou/uL (0.0-0.7); #Lymphocytes 1.5 thou/uL (1.20-3.40); #Monocytes 0.7 thou/uL (0.11-0.59); #Neutrophils 6.4 thou/uL (1.40-6.50); %Basophils 0.1 % (0.0-1.0); %Eosinophils 1.1 % (0.0-10.0); %Lymphocytes 17.5 % (21.0-51.0); %Monocytes 7.7 % (0.0-10.0); %Neutrophils 73.6 % (42.0-75.0); Anion Gap 11 mmol/L (10-20); BUN (Urea Nitrogen) 9 mg/dL (8.4-25.7); Calc. Creatinine Clearance 187 mL/min (70-130); Calcium 8.3 mg/dL (7.8-10.44); Carbon Dioxide 22 mmol/L (22-29); Chloride 109 mmol/L (98-107); Glucose 148 mg/dL (70-105); Hemoglobin 12.2 g/dL (14.0-18.0); Mean Corpuscular HGB CONC 32.3 g/dL (32.0-36.0); Mean Corpuscular Volume 86.6 fL (78.0-98.0); Platelet Count 167 thou/uL (130-400); Potassium 3.6 mmol/L (3.5-5.1); RBC Distribution Width 13.5 % (11.5-14.5); Red Blood Cell (RBC) Count 4.37 mill/uL (4.70-6.10); Sodium 138 mmol/L (136-145); White Blood Cell (WBC) Count 8.7 thou/uL (4.8-10.8)
[2021-06-25 07:34] LABS: Vancomycin, Trough 24.6 ug/mL
[2021-06-25] MEDS: Aspirin 81 mg Enteric Coated Tablet PO SCH (08:14)
[2021-06-25] MEDS: Gabapentin 300 MG CAP PO SCH ×2 (08:14→20:16)
[2021-06-25] MEDS: glipiZIDE 5 MG TAB PO SCH ×2 (08:14→17:18)
[2021-06-25] MEDS: Heparin 5,000 UNITS/ML VIAL SC SCH ×2 (08:15→20:16)
[2021-06-25] MEDS: Clopidogrel Bisulfate 75 MG TAB PO SCH (08:15)
[2021-06-25] MEDS: VANCOMYCIN 2 GRAM/500 ML BAG 2 GM in Premix Bag 1 BAG IVPB SCH (08:39)
[2021-06-25] MEDS ORDERED: Vancomycin 1.5 GRAM/300 ML BAG 1.5 GM in Premix Bag 1 BAG IVPB SCH (09:00)
[2021-06-25 11:24] VITALS: BMI 40.8
[2021-06-25] MEDS: Atorvastatin Calcium 20 MG TAB PO SCH (20:16)
[2021-06-26] MEDS: Meropenem 1 GM in Sodium Chloride 0.9% 100 ML IVPB SCH ×3 (03:03→17:59)
[2021-06-26 06:38] LABS: #Eosinphils 0.2 thou/uL (0.0-0.7); #Lymphocytes 1.3 thou/uL (1.20-3.40); #Monocytes 0.5 thou/uL (0.11-0.59); #Neutrophils 5.4 thou/uL (1.40-6.50); %Basophils 0.3 % (0.0-1.0); %Lymphocytes 18.1 % (21.0-51.0); %Neutrophils 72.6 % (42.0-75.0); Hemoglobin 11.6 g/dL (14.0-18.0); Mean Corpuscular HGB CONC 32.4 g/dL (32.0-36.0); Mean Corpuscular Hemoglobin 27.8 pg (27.0-31.0); Mean Platelet Volume 7.8 fL (7.4-10.4); Platelet Count 165 thou/uL (130-400); RBC Distribution Width 13.5 % (11.5-14.5); Red Blood Cell (RBC) Count 4.16 mill/uL (4.70-6.10); White Blood Cell (WBC) Count 7.4 thou/uL (4.8-10.8)
[2021-06-26 06:45] LABS: Anion Gap 10 mmol/L (10-20); BUN (Urea Nitrogen) 15 mg/dL (8.4-25.7); Calc. Creatinine Clearance 197 mL/min (70-130); Calcium 8.3 mg/dL (7.8-10.44); Carbon Dioxide 23 mmol/L (22-29); Chloride 106 mmol/L (98-107); Glucose 175 mg/dL (70-105); Potassium 3.7 mmol/L (3.5-5.1); Sodium 135 mmol/L (136-145)
[2021-06-26] MEDS: Heparin 5,000 UNITS/ML VIAL SC SCH ×2 (08:28→20:04)
[2021-06-26] MEDS: Aspirin 81 mg Enteric Coated Tablet PO SCH (08:29)
[2021-06-26] MEDS: glipiZIDE 5 MG TAB PO SCH ×2 (08:29→16:16)
[2021-06-26] MEDS: Clopidogrel Bisulfate 75 MG TAB PO SCH (08:29)
[2021-06-26] MEDS: Gabapentin 300 MG CAP PO SCH ×2 (08:29→20:08)
[2021-06-26] MEDS ORDERED: HYDROcodone/Acetaminophen 10/325 mg Tablet PO PRN (18:49)
[2021-06-26] MEDS: Atorvastatin Calcium 20 MG TAB PO SCH (20:08)
[2021-06-26] MEDS ORDERED: Rosuvastatin 20 MG TAB PO SCH (21:00)
[2021-06-26] MEDS ORDERED: Insulin Glargine 30 UNITS/0.3 ML VIAL SC SCH (21:00)
[2021-06-27] MEDS: Meropenem 1 GM in Sodium Chloride 0.9% 100 ML IVPB SCH ×2 (03:02→11:49)
[2021-06-27 06:38] LABS: #Eosinphils 0.2 thou/uL (0.0-0.7); #Lymphocytes 2.4 thou/uL (1.20-3.40); #Monocytes 0.6 thou/uL (0.11-0.59); #Neutrophils 6.8 thou/uL (1.40-6.50); %Basophils 0.3 % (0.0-1.0); %Lymphocytes 23.4 % (21.0-51.0); %Monocytes 6.4 % (0.0-10.0); %Neutrophils 67.9 % (42.0-75.0); Hemoglobin 12.8 g/dL (14.0-18.0); Mean Corpuscular HGB CONC 31.8 g/dL (32.0-36.0); Mean Corpuscular Hemoglobin 27.2 pg (27.0-31.0); Mean Corpuscular Volume 85.3 fL (78.0-98.0); Mean Platelet Volume 7.6 fL (7.4-10.4); Platelet Count 190 thou/uL (130-400); RBC Distribution Width 13.4 % (11.5-14.5); Red Blood Cell (RBC) Count 4.69 mill/uL (4.70-6.10); White Blood Cell (WBC) Count 10.1 thou/uL (4.8-10.8)
[2021-06-27 06:59] LABS: Anion Gap 14 mmol/L (10-20); BUN (Urea Nitrogen) 12 mg/dL (8.4-25.7); Calc. Creatinine Clearance 208 mL/min (70-130); Calcium 8.5 mg/dL (7.8-10.44); Carbon Dioxide 20 mmol/L (22-29); Chloride 107 mmol/L (98-107); Glucose 126 mg/dL (70-105); Potassium 3.9 mmol/L (3.5-5.1); Sodium 137 mmol/L (136-145)
[2021-06-27 08:09] VITALS: BP 150/75; TEMP 98.7
[2021-06-27] MEDS: Heparin 5,000 UNITS/ML VIAL SC SCH (08:31)
[2021-06-27] MEDS: Gabapentin 300 MG CAP PO SCH (08:31)
[2021-06-27] MEDS: glipiZIDE 5 MG TAB PO SCH (08:31)
[2021-06-27] MEDS: Aspirin 81 mg Enteric Coated Tablet PO SCH (08:31)
[2021-06-27] MEDS: Clopidogrel Bisulfate 75 MG TAB PO SCH (08:31)
== END 2021-06-27 14:00 | disposition home or self-care (01) | DRG 698 ==
LOC: ERS 09:39 → ERHOLD 12:30 → T4-A 15:34 → OBSVTOIN 16:22 → CCU 18:36 → T4-A 06-24 18:16
PROVIDERS: ADMIT Internal Medicine; ATTEND Internal Medicine
PROC: 3E03329 Introduction of Other Anti-infective into Peripheral Vein, Percutaneous Approach (ICD-10-PCS; principal; 2021-06-22)
PROC: 06HY33Z Insertion of Infusion Device into Lower Vein, Percutaneous Approach (ICD-10-PCS; 2021-06-22)
PROC: 3E043XZ Introduction of Vasopressor into Central Vein, Percutaneous Approach (ICD-10-PCS; 2021-06-22)
PROC: 3E04329 Introduction of Other Anti-infective into Central Vein, Percutaneous Approach (ICD-10-PCS; 2021-06-22)
DX: T83.511A Infection and inflammatory reaction due to indwelling urethral catheter, initial encounter (principal); Z20.822 Contact with and (suspected) exposure to COVID-19; A41.51 Sepsis due to Escherichia coli [E. coli]; L89.324 Pressure ulcer of left buttock, stage 4; L89.154 Pressure ulcer of sacral region, stage 4; R65.21 Severe sepsis with septic shock; A41.4 Sepsis due to anaerobes; M46.28 Osteomyelitis of vertebra, sacral and sacrococcygeal region; N10 Acute pyelonephritis; E87.1 Hypo-osmolality and hyponatremia; Z68.42 Body mass index [BMI] 45.0-49.9, adult; Y84.6 Urinary catheterization as the cause of abnormal reaction of the patient, or of later complication, without mention of misadventure at the time of the procedure; I10 Essential (primary) hypertension; E78.5 Hyperlipidemia, unspecified; F17.210 Nicotine dependence, cigarettes, uncomplicated; E11.51 Type 2 diabetes mellitus with diabetic peripheral angiopathy without gangrene; E78.00 Pure hypercholesterolemia, unspecified; E78.2 Mixed hyperlipidemia; L89.312 Pressure ulcer of right buttock, stage 2; E11.69 Type 2 diabetes mellitus with other specified complication; N31.9 Neuromuscular dysfunction of bladder, unspecified; I25.10 Atherosclerotic heart disease of native coronary artery without angina pectoris; E66.01 Morbid (severe) obesity due to excess calories; Z91.018 Allergy to other foods; Z89.512 Acquired absence of left leg below knee; Z89.511 Acquired absence of right leg below knee; Q05.9 Spina bifida, unspecified; Z88.1 Allergy status to other antibiotic agents; Z88.5 Allergy status to narcotic agent; Z87.440 Personal history of urinary (tract) infections; Z79.899 Other long term (current) drug therapy; Z79.02 Long term (current) use of antithrombotics/antiplatelets; Z79.4 Long term (current) use of insulin; Z79.84 Long term (current) use of oral hypoglycemic drugs; Z71.6 Tobacco abuse counseling; I25.2 Old myocardial infarction; Z93.3 Colostomy status; Z95.5 Presence of coronary angioplasty implant and graft
CPT/HCPCS: 36415; 36416; 51702; 71045; 74177; 80048; 80053; 80061; 80202; 81003; 81015; 83036; 83605; 83690; 83735; 85025; 87040; 87077; 87086; 87149; 87186; 93005; 96365; 96375; J1644; J1815; J1956; J2185; J2270; J2405; J3370; J3490; J7050; P9045; Q9967; U0003; U0005

== ENCOUNTER 2022-07-20 21:41 | Inpatient (IN) | payer OTHER ==
[2022-07-20 22:12] LABS: #Basophils 0.1 thou/uL (0.0-0.2); #Eosinphils 0.1 thou/uL (0.0-0.7); #Monocytes 0.2 thou/uL (0.11-0.59); #Neutrophils 16.5 thou/uL (1.40-6.50); %Basophils 0.3 % (0.0-1.0); %Eosinophils 0.7 % (0.0-10.0); %Lymphocytes 6.2 % (21.0-51.0); %Neutrophils 90.9 % (42.0-75.0); Hemoglobin 9.6 g/dL (14.0-18.0); Mean Corpuscular HGB CONC 29.7 g/dL (32.0-36.0); Mean Corpuscular Hemoglobin 22.1 pg (27.0-31.0); Mean Corpuscular Volume 74.4 fl (78.0-98.0); Mean Platelet Volume 9.2 fL (7.4-10.4); Platelet Count 573 10x3/uL (130-400); RBC Distribution Width 17.2 % (11.5-14.5); Red Blood Cell (RBC) Count 4.34 mill/uL (4.70-6.10); White Blood Cell (WBC) Count 18.2 10x3/uL (4.8-10.8)
[2022-07-20 22:19] LABS: Bacteria/HPF 4+ HPF (None Seen); Bilirubin Negative (Negative); Blood, Urine Negative (Negative); CAUTI Indications for Culture Fever or rigors; Clarity Extra Turbid (Clear); Glucose, Urine (Dipstick) Normal (Negative); Ketone, Urine Negative (Negative); Leukocyte 500 Leu/uL (Negative); Nitrite 2+ (Negative); Protein, Urine (Dipstick) 30 mg/dL (Neg-Trace); RBC/HPF 0-3 HPF (0-3); Specific Gravity, Urine 1.014 (1.002-1.036); Triple Phosphate Crystal 2+ HPF (None Seen); Urobilinogen Normal mg/dL (Less than 2); WBC/HPF 21-50 HPF (0-3); pH, Urine 8.5 (5.0-9.0)
[2022-07-20 22:23] LABS: Urine Culture Reflex Yes Yes
[2022-07-20 22:38] LABS: ALT (SGPT) 21 U/L (8-55); AST (SGOT) 20 U/L (5-34); Albumin 3.2 g/dL (3.5-5.0); Alkaline Phosphatase 345 U/L (40-110); Anion Gap 16 mmol/L (10-20); BUN (Urea Nitrogen) 11 mg/dL (8.4-25.7); Bilirubin, Total 0.2 mg/dL (0.2-1.2); Calc. Creatinine Clearance 0 mL/min (70-130); Calcium 8.9 mg/dL (7.8-10.44); Carbon Dioxide 18 mmol/L (22-29); Chloride 98 mmol/L (98-107); Estimated GFR 101; Globulin 3.9 g/dL (2.4-3.5); Glucose 169 mg/dL (70-105); Potassium 3.7 mmol/L (3.5-5.1); Protein, Total 7.1 g/dL (6.0-8.3); Sodium 128 mmol/L (136-145)
[2022-07-20] MEDS ORDERED: NOREPINEPHRINE 8 MG/250 ML-D5W 250 ML ONE (23:03)
[2022-07-20] MEDS ORDERED: fentaNYL 50 mcg/mL 1 mL Vial ONE (23:52)
[2022-07-20] MEDS ORDERED: Piperacillin/Tazobactam 4.5 GM VIAL ONE (23:52)
[2022-07-21] MEDS ORDERED: VANCOMYCIN 2 GRAM/500 ML BAG 2 GM in Premix Bag 1 BAG IVPB SCH (00:15)
[2022-07-21 01:15] LABS: Lactic Acid 1.9 mmol/L (0.5-2.2)
[2022-07-21] MEDS ORDERED: Acetaminophen 325 MG TAB PO PRN (02:01)
[2022-07-21] MEDS ORDERED: Ondansetron PF 4 MG/2 ML Vial IVP PRN (02:01)
[2022-07-21] MEDS ORDERED: HumaLOG 300 UNITS/3 ML VIAL SC PRN (02:06)
[2022-07-21] MEDS ORDERED: Dextrose 50% Abboject 50 ML SYRINGE SLOW IVP PRN (02:06)
[2022-07-21] MEDS ORDERED: Glucagon 1 MG/ML KIT IM PRN (02:06)
[2022-07-21] MEDS ORDERED: Dextrose 5% in Water 1,000 ML IV PRN (02:06)
[2022-07-21] MEDS: Ketorolac Tromethamine 30 MG/ML VIAL IVP PRN ×2 (04:05→11:26)
[2022-07-21] MEDS: Sodium Chloride 0.9% 1,000 ML IV SCH (04:05)
[2022-07-21 04:44] LABS: #Basophils 0.1 thou/uL (0.0-0.2); #Eosinphils 0.1 thou/uL (0.0-0.7); #Neutrophils 39.2 thou/uL (1.40-6.50); %Basophils 0.3 % (0.0-1.0); %Eosinophils 0.2 % (0.0-10.0); %Monocytes 2.3 % (0.0-10.0); %Neutrophils 93.8 % (42.0-75.0); Hemoglobin 9.3 g/dL (14.0-18.0); Mean Corpuscular HGB CONC 29.6 g/dL (32.0-36.0); Mean Corpuscular Hemoglobin 22.6 pg (27.0-31.0); Mean Corpuscular Volume 76.4 fl (78.0-98.0); Mean Platelet Volume 9.1 fL (7.4-10.4); RBC Distribution Width 17.2 % (11.5-14.5); Red Blood Cell (RBC) Count 4.11 mill/uL (4.70-6.10)
[2022-07-21 04:48] LABS: White Blood Cell (WBC) Count 41.8 10x3/uL (4.8-10.8)
[2022-07-21 04:49] LABS: Platelet Count 646 10x3/uL (130-400)
[2022-07-21] MEDS: NOREPINEPHRINE 8 MG/250 ML-D5W 250 ML IVPB SCH ×2 (05:10→15:27)
[2022-07-21 05:17] LABS: Troponin I 0.313 ng/mL (< 0.028)
[2022-07-21 05:18] LABS: ALT (SGPT) 21 U/L (8-55); AST (SGOT) 26 U/L (5-34); Albumin 2.7 g/dL (3.5-5.0); Alkaline Phosphatase 363 U/L (40-110); Anion Gap 14 mmol/L (10-20); BUN (Urea Nitrogen) 11 mg/dL (8.4-25.7); Bilirubin, Total 0.4 mg/dL (0.2-1.2); Calc. Creatinine Clearance 159 mL/min (70-130); Calcium 8.2 mg/dL (7.8-10.44); Carbon Dioxide 16 mmol/L (22-29); Chloride 108 mmol/L (98-107); Estimated GFR 102; Globulin 3.5 g/dL (2.4-3.5); Glucose 279 mg/dL (70-105); Potassium 3.1 mmol/L (3.5-5.1); Protein, Total 6.2 g/dL (6.0-8.3); Sodium 135 mmol/L (136-145)
[2022-07-21] MEDS ORDERED: Meropenem 1 GM in Sodium Chloride 0.9% 100 ML IVPB SCH (06:00)
[2022-07-21] MEDS: HumaLOG 300 UNITS/3 ML VIAL SC PRN ×3 (06:30→16:58)
[2022-07-21 07:32] LABS: Troponin I 0.338 ng/mL (< 0.028)
[2022-07-21] MEDS: Famotidine/PF 20 mg/2ml Vial SLOW IVP SCH ×2 (09:25→21:10)
[2022-07-21] MEDS: VANCOMYCIN 1.25 GM/250 ML BAG 1.25 GM in Premix Bag 1 BAG IVPB SCH (13:07)
[2022-07-21] MEDS ORDERED: Electrolyte Replacement Protocol FS PRN (13:45)
[2022-07-21] MEDS: Potassium Chloride 20 MEQ in Premix Bag 1 BAG IVPB SCH ×2 (15:28→16:52)
[2022-07-21] MEDS: Meropenem 1 GM in Sodium Chloride 0.9% 100 ML IVPB SCH ×2 (15:29→21:10)
[2022-07-21 20:53] LABS: Potassium 4.5 mmol/L (3.5-5.1)
[2022-07-21] MEDS: Insulin Glargine 30 UNITS/0.3 ML VIAL SC SCH (21:10)
[2022-07-21] MEDS: Gabapentin 300 MG CAP PO SCH (21:11)
[2022-07-22] MEDS: VANCOMYCIN 1.25 GM/250 ML BAG 1.25 GM in Premix Bag 1 BAG IVPB SCH (01:03)
[2022-07-22] MEDS: Sodium Chloride 0.9% 1,000 ML IV SCH (02:38)
[2022-07-22 04:01] LABS: #Eosinphils 0.2 thou/uL (0.0-0.7); #Monocytes 0.7 thou/uL (0.11-0.59); #Neutrophils 8.9 thou/uL (1.40-6.50); %Basophils 0.3 % (0.0-1.0); %Lymphocytes 10.4 % (21.0-51.0); %Monocytes 6.2 % (0.0-10.0); %Neutrophils 80.4 % (42.0-75.0); Hemoglobin 7.6 g/dL (14.0-18.0); Mean Corpuscular HGB CONC 29.1 g/dL (32.0-36.0); Mean Corpuscular Hemoglobin 21.5 pg (27.0-31.0); Mean Platelet Volume 9.3 fL (7.4-10.4); Platelet Count 373 10x3/uL (130-400); RBC Distribution Width 17.2 % (11.5-14.5); Red Blood Cell (RBC) Count 3.53 mill/uL (4.70-6.10); White Blood Cell (WBC) Count 11.1 10x3/uL (4.8-10.8)
[2022-07-22 04:11] LABS: Mean Corpuscular Volume 73.9 fl (78.0-98.0)
[2022-07-22 04:37] LABS: ALT (SGPT) 15 U/L (8-55); AST (SGOT) 10 U/L (5-34); Albumin 2.3 g/dL (3.5-5.0); Alkaline Phosphatase 257 U/L (40-110); Anion Gap 11 mmol/L (10-20); BUN (Urea Nitrogen) 8 mg/dL (8.4-25.7); Bilirubin, Total 0.2 mg/dL (0.2-1.2); Calc. Creatinine Clearance 165 mL/min (70-130); Calcium 7.9 mg/dL (7.8-10.44); Carbon Dioxide 19 mmol/L (22-29); Chloride 105 mmol/L (98-107); Estimated GFR 104; Globulin 3.2 g/dL (2.4-3.5); Glucose 314 mg/dL (70-105); Potassium 3.7 mmol/L (3.5-5.1); Protein, Total 5.5 g/dL (6.0-8.3); Sodium 131 mmol/L (136-145)
[2022-07-22] MEDS: HumaLOG 300 UNITS/3 ML VIAL SC PRN ×2 (05:31→12:18)
[2022-07-22] MEDS: Meropenem 1 GM in Sodium Chloride 0.9% 100 ML IVPB SCH ×3 (05:35→21:11)
[2022-07-22] MEDS: Gabapentin 300 MG CAP PO SCH ×2 (09:13→21:10)
[2022-07-22] MEDS: Clopidogrel Bisulfate 75 MG TAB PO SCH (09:14)
[2022-07-22] MEDS: Aspirin 81 mg Enteric Coated Tablet PO SCH (09:14)
[2022-07-22] MEDS: Insulin Glargine 30 UNITS/0.3 ML VIAL SC SCH ×3 (09:15→21:10)
[2022-07-22] MEDS: Famotidine/PF 20 mg/2ml Vial SLOW IVP SCH (09:15)
[2022-07-22] MEDS: Sertraline 100 MG TAB PO SCH ×3 (09:21→21:10)
[2022-07-22] MEDS: Rosuvastatin 20 MG TAB PO SCH (09:21)
[2022-07-22] MEDS ORDERED: glipiZIDE 5 MG TAB PO SCH (09:36)
[2022-07-22] MEDS ORDERED: Lactated Ringer's 500 ML IV SCH (10:45)
[2022-07-22 12:31] LABS: Vancomycin, Trough 14.5 ug/mL
[2022-07-22] MEDS: Vancomycin HCl 750 MG in Sodium Chloride 0.9% 250 ML 250 ML IVPB SCH (13:50)
[2022-07-22] MEDS: Morphine 2 MG/ML VIAL SLOW IVP PRN ×2 (15:38→23:13)
[2022-07-22] MEDS: Famotidine 20 MG TAB PO SCH (21:10)
[2022-07-23 04:54] LABS: #Eosinphils 0.2 thou/uL (0.0-0.7); #Monocytes 0.7 thou/uL (0.11-0.59); %Basophils 0.2 % (0.0-1.0); %Eosinophils 2.1 % (0.0-10.0); %Lymphocytes 18.6 % (21.0-51.0); %Monocytes 7.2 % (0.0-10.0); %Neutrophils 71.2 % (42.0-75.0); Hemoglobin 7.1 g/dL (14.0-18.0); Mean Corpuscular HGB CONC 29.5 g/dL (32.0-36.0); Mean Corpuscular Hemoglobin 22.3 pg (27.0-31.0); Mean Corpuscular Volume 75.8 fl (78.0-98.0); Mean Platelet Volume 9.1 fL (7.4-10.4); Platelet Count 365 10x3/uL (130-400); RBC Distribution Width 17.2 % (11.5-14.5); Red Blood Cell (RBC) Count 3.18 mill/uL (4.70-6.10); White Blood Cell (WBC) Count 9.8 10x3/uL (4.8-10.8)
[2022-07-23] MEDS: Sodium Chloride 0.9% 1,000 ML IV SCH (04:56)
[2022-07-23 05:16] LABS: ALT (SGPT) 15 U/L (8-55); AST (SGOT) 16 U/L (5-34); Albumin 2.3 g/dL (3.5-5.0); Alkaline Phosphatase 231 U/L (40-110); Anion Gap 7 mmol/L (10-20); BUN (Urea Nitrogen) 10 mg/dL (8.4-25.7); Bilirubin, Total Less than 0.2 mg/dL (0.2-1.2); Calc. Creatinine Clearance 190 mL/min (70-130); Calcium 8.2 mg/dL (7.8-10.44); Carbon Dioxide 24 mmol/L (22-29); Chloride 107 mmol/L (98-107); Estimated GFR 107; Glucose 128 mg/dL (70-105); Potassium 3.5 mmol/L (3.5-5.1); Protein, Total 5.3 g/dL (6.0-8.3); Sodium 134 mmol/L (136-145)
[2022-07-23] MEDS: Meropenem 1 GM in Sodium Chloride 0.9% 100 ML IVPB SCH ×3 (05:37→21:06)
[2022-07-23] MEDS ORDERED: Piperacillin/Tazobactam 2.25 GM in Sodium Chloride 0.9% 100 ML IVPB SCH (06:00)
[2022-07-23] MEDS: Vancomycin HCl 750 MG in Sodium Chloride 0.9% 250 ML 250 ML IVPB SCH (07:28)
[2022-07-23] MEDS: glipiZIDE 5 MG TAB PO SCH (07:41)
[2022-07-23] MEDS ORDERED: Potassium Chloride 20 MEQ TAB PO SCH (08:00)
[2022-07-23] MEDS: Famotidine 20 MG TAB PO SCH ×2 (08:49→20:52)
[2022-07-23] MEDS: Clopidogrel Bisulfate 75 MG TAB PO SCH (08:49)
[2022-07-23] MEDS: Gabapentin 300 MG CAP PO SCH ×2 (08:50→20:51)
[2022-07-23] MEDS: Aspirin 81 mg Enteric Coated Tablet PO SCH (08:50)
[2022-07-23] MEDS: Insulin Glargine 30 UNITS/0.3 ML VIAL SC SCH ×3 (08:52→22:32)
[2022-07-23] MEDS: Morphine 2 MG/ML VIAL SLOW IVP PRN ×4 (08:52→20:49)
[2022-07-23] MEDS: Rosuvastatin 20 MG TAB PO SCH (08:55)
[2022-07-23 11:22] VITALS: BMI 68.8
[2022-07-23] MEDS: Sertraline 100 MG TAB PO SCH (20:53)
[2022-07-24] MEDS: Meropenem 1 GM in Sodium Chloride 0.9% 100 ML IVPB SCH ×3 (05:31→22:04)
[2022-07-24 06:35] LABS: #Eosinphils 0.2 thou/uL (0.0-0.7); #Monocytes 0.5 thou/uL (0.11-0.59); #Neutrophils 6.1 thou/uL (1.40-6.50); %Basophils 0.2 % (0.0-1.0); %Eosinophils 2.5 % (0.0-10.0); %Lymphocytes 17.9 % (21.0-51.0); %Monocytes 5.9 % (0.0-10.0); %Neutrophils 72.7 % (42.0-75.0); Hemoglobin 7.5 g/dL (14.0-18.0); Mean Corpuscular HGB CONC 29.8 g/dL (32.0-36.0); Mean Corpuscular Hemoglobin 22.3 pg (27.0-31.0); Mean Platelet Volume 9.2 fL (7.4-10.4); Platelet Count 389 10x3/uL (130-400); RBC Distribution Width 17.3 % (11.5-14.5); Red Blood Cell (RBC) Count 3.36 mill/uL (4.70-6.10); White Blood Cell (WBC) Count 8.3 10x3/uL (4.8-10.8)
[2022-07-24 06:55] LABS: Anion Gap 9 mmol/L (10-20); BUN (Urea Nitrogen) 8 mg/dL (8.4-25.7); Calc. Creatinine Clearance 189 mL/min (70-130); Calcium 8.5 mg/dL (7.8-10.44); Carbon Dioxide 26 mmol/L (22-29); Chloride 108 mmol/L (98-107); Estimated GFR 107; Glucose 128 mg/dL (70-105); Sodium 139 mmol/L (136-145)
[2022-07-24] MEDS: Sodium Chloride 0.9% 1,000 ML IV SCH ×3 (07:57→14:22)
[2022-07-24] MEDS: VANCOMYCIN 1.25 GM/250 ML BAG 1.25 GM in Premix Bag 1 BAG IVPB SCH (07:58)
[2022-07-24] MEDS: Insulin Glargine 30 UNITS/0.3 ML VIAL SC SCH ×3 (07:58→23:20)
[2022-07-24] MEDS: Gabapentin 300 MG CAP PO SCH ×2 (08:19→22:04)
[2022-07-24] MEDS: Aspirin 81 mg Enteric Coated Tablet PO SCH (08:19)
[2022-07-24] MEDS: Clopidogrel Bisulfate 75 MG TAB PO SCH (08:19)
[2022-07-24] MEDS: glipiZIDE 5 MG TAB PO SCH (08:19)
[2022-07-24] MEDS: Famotidine 20 MG TAB PO SCH ×2 (08:19→22:04)
[2022-07-24] MEDS: Rosuvastatin 20 MG TAB PO SCH (08:19)
[2022-07-24] MEDS: Morphine 2 MG/ML VIAL SLOW IVP PRN ×3 (08:20→19:47)
[2022-07-24] MEDS: Sertraline 100 MG TAB PO SCH (22:04)
[2022-07-25] MEDS: Meropenem 1 GM in Sodium Chloride 0.9% 100 ML IVPB SCH ×4 (06:17→21:29)
[2022-07-25] MEDS: Morphine 2 MG/ML VIAL SLOW IVP PRN ×4 (06:18→20:20)
[2022-07-25] MEDS: Gabapentin 300 MG CAP PO SCH ×2 (09:16→20:21)
[2022-07-25] MEDS: glipiZIDE 5 MG TAB PO SCH (09:16)
[2022-07-25] MEDS: Clopidogrel Bisulfate 75 MG TAB PO SCH (09:16)
[2022-07-25] MEDS: Insulin Glargine 30 UNITS/0.3 ML VIAL SC SCH ×2 (09:17→23:08)
[2022-07-25] MEDS: Aspirin 81 mg Enteric Coated Tablet PO SCH (09:17)
[2022-07-25] MEDS: Rosuvastatin 20 MG TAB PO SCH (09:17)
[2022-07-25] MEDS: Famotidine 20 MG TAB PO SCH ×2 (09:17→20:23)
[2022-07-25] MEDS: Sertraline 100 MG TAB PO SCH (20:23)
[2022-07-26] MEDS: Sodium Chloride 0.9% 1,000 ML IV SCH ×2 (02:56)
[2022-07-26] MEDS: Morphine 2 MG/ML VIAL SLOW IVP PRN ×4 (02:57→19:23)
[2022-07-26] MEDS: Meropenem 1 GM in Sodium Chloride 0.9% 100 ML IVPB SCH ×3 (06:07→22:12)
[2022-07-26] MEDS: Famotidine 20 MG TAB PO SCH ×2 (08:31→22:10)
[2022-07-26] MEDS: Aspirin 81 mg Enteric Coated Tablet PO SCH (08:31)
[2022-07-26] MEDS: Insulin Glargine 30 UNITS/0.3 ML VIAL SC SCH ×2 (08:31→22:28)
[2022-07-26] MEDS: Clopidogrel Bisulfate 75 MG TAB PO SCH (08:31)
[2022-07-26] MEDS: glipiZIDE 5 MG TAB PO SCH (08:31)
[2022-07-26] MEDS: Rosuvastatin 20 MG TAB PO SCH (08:31)
[2022-07-26] MEDS: Gabapentin 300 MG CAP PO SCH ×2 (08:32→22:10)
[2022-07-26] MEDS: Cefadroxil Hydrate 500 mg/5 ml Suspenion PO SCH (22:09)
[2022-07-26] MEDS: Sertraline 100 MG TAB PO SCH (22:10)
[2022-07-27] MEDS: Cefadroxil Hydrate 500 mg/5 ml Suspenion PO SCH (00:48)
[2022-07-27] MEDS: Morphine 2 MG/ML VIAL SLOW IVP PRN ×3 (00:48→11:56)
[2022-07-27] MEDS: Meropenem 1 GM in Sodium Chloride 0.9% 100 ML IVPB SCH (05:58)
[2022-07-27] MEDS: glipiZIDE 5 MG TAB PO SCH (07:38)
[2022-07-27] MEDS: Sodium Chloride 0.9% 1,000 ML IV SCH (07:40)
[2022-07-27 08:44] VITALS: BP 99/55; TEMP 98.2
[2022-07-27] MEDS ORDERED: Cefadroxil Hydrate 500 mg/5 ml Suspenion PO SCH (09:00)
[2022-07-27] MEDS: Insulin Glargine 30 UNITS/0.3 ML VIAL SC SCH (09:47)
[2022-07-27] MEDS: Gabapentin 300 MG CAP PO SCH (09:47)
[2022-07-27] MEDS: Clopidogrel Bisulfate 75 MG TAB PO SCH (09:48)
[2022-07-27] MEDS: Aspirin 81 mg Enteric Coated Tablet PO SCH (09:48)
[2022-07-27] MEDS: Rosuvastatin 20 MG TAB PO SCH (09:48)
[2022-07-27] MEDS: Famotidine 20 MG TAB PO SCH (09:48)
[2022-07-27] MEDS ORDERED: Fosfomycin 3 GM/Packet PO SCH (12:00)
== END 2022-07-27 14:28 | disposition home health service (06) | DRG 673 ==
LOC: ERS 21:41 → CCU 07-21 02:05 → MSONC 07-23 10:12
PROVIDERS: ADMIT Internal Medicine; ATTEND Internal Medicine
PROC: 3E033XZ Introduction of Vasopressor into Peripheral Vein, Percutaneous Approach (ICD-10-PCS; 2022-07-20)
PROC: 0JB90ZZ Excision of Buttock Subcutaneous Tissue and Fascia, Open Approach (ICD-10-PCS; principal; 2022-07-21)
DX: T83.511A Infection and inflammatory reaction due to indwelling urethral catheter, initial encounter (principal); A41.9 Sepsis, unspecified organism; L89.314 Pressure ulcer of right buttock, stage 4; R65.21 Severe sepsis with septic shock; I50.42 Chronic combined systolic (congestive) and diastolic (congestive) heart failure; E87.1 Hypo-osmolality and hyponatremia; Z68.44 Body mass index [BMI] 60.0-69.9, adult; E87.20 Acidosis, unspecified; M86.68 Other chronic osteomyelitis, other site; E11.52 Type 2 diabetes mellitus with diabetic peripheral angiopathy with gangrene; N39.0 Urinary tract infection, site not specified; K21.9 Gastro-esophageal reflux disease without esophagitis; F41.9 Anxiety disorder, unspecified; F32.A Depression, unspecified; I11.0 Hypertensive heart disease with heart failure; F17.210 Nicotine dependence, cigarettes, uncomplicated; R77.8 Other specified abnormalities of plasma proteins; E78.5 Hyperlipidemia, unspecified; E66.01 Morbid (severe) obesity due to excess calories; Z93.3 Colostomy status; Z89.512 Acquired absence of left leg below knee; Z89.511 Acquired absence of right leg below knee; Z88.8 Allergy status to other drugs, medicaments and biological substances; Z88.6 Allergy status to analgesic agent; Z91.018 Allergy to other foods; Z79.899 Other long term (current) drug therapy; Z79.4 Long term (current) use of insulin; Z79.84 Long term (current) use of oral hypoglycemic drugs; Z98.890 Other specified postprocedural states; Z82.49 Family history of ischemic heart disease and other diseases of the circulatory system; Z83.3 Family history of diabetes mellitus; Q05.9 Spina bifida, unspecified; Z88.1 Allergy status to other antibiotic agents
CPT/HCPCS: 36415; 36416; 36556; 51702; 71045; 74176; 80048; 80053; 80202; 81001; 82533; 83605; 83880; 84145; 84484; 85025; 87040; 87077; 87086; 87149; 87186; 93005; 93306; 96361; 96365; 96366; 96368; 96375; 97139; J1650; J1815; J1885; J2185; J2272; J2543; J3010; J3370; J3480; J3490; J7050; J7120; S0028

== ENCOUNTER 2023-10-12 14:46 | Emergency (ER) | payer OTHER ==
[~2023-10-12 14:46] MED LIST changes: -Iopamidol 370 76% 100 ML VIAL ONE; +Iopamidol-370 76% 500 ML MDV (1 ML CHARGE) ONE
[2023-10-12] MEDS ORDERED: fentaNYL 50 mcg/mL 1 mL Vial ONE (15:56)
[2023-10-12 15:57] LABS: #Basophils 0.04 10x3/uL (0.0-0.2); %Basophils 0.2 % (0.0-1.0); %Eosinophils 0.5 % (0.0-10.0); %Lymphocytes 9.9 % (21.0-51.0); %Monocytes 4.2 % (0.0-10.0); %Neutrophils 84.8 % (42.0-75.0); Hematocrit 45.4 % (42.0-52.0); Hemoglobin 14.5 g/dL (14.0-18.0); Mean Corpuscular HGB CONC 31.9 g/dL (32.0-36.0); Mean Corpuscular Hemoglobin 25.2 pg (27.0-31.0); Mean Platelet Volume 9.7 fL (7.4-10.4); Platelet Count 248 10x3/uL (130-400); RBC Distribution Width 16.9 % (11.5-14.5); Red Blood Cell (RBC) Count 5.75 mill/uL (4.70-6.10)
[2023-10-12] MEDS ORDERED: Ondansetron PF 4 MG/2 ML Vial ONE (15:57)
[2023-10-12 16:05] LABS: ALT (SGPT) 8 U/L (8-55); AST (SGOT) 11 U/L (5-34); Albumin 3.4 g/dL (3.5-5.0); Alkaline Phosphatase 118 U/L (40-110); Anion Gap 15 mmol/L (10-20); BUN (Urea Nitrogen) 16 mg/dL (8.4-25.7); Bilirubin, Total 0.5 mg/dL (0.2-1.2); Calc. Creatinine Clearance 0 mL/min (70-130); Calcium 9.4 mg/dL (7.8-10.44); Carbon Dioxide 19 mmol/L (22-29); Chloride 104 mmol/L (98-107); Estimated GFR 104; Glucose 135 mg/dL (70-105); Potassium 3.9 mmol/L (3.5-5.1); Protein, Total 7.4 g/dL (6.0-8.3); Sodium 134 mmol/L (136-145)
[2023-10-12] MEDS ORDERED: metroNIDAZOLE 500 MG (100 mL) BAG ONE (17:58)
[2023-10-12] MEDS ORDERED: LevoFLOXacin 750 mg/D5W 150 ml Premix Bag ONE (17:59)
== END 2023-10-12 20:58 ==
LOC: ERS 14:46
DX: K52.9 Noninfective gastroenteritis and colitis, unspecified (principal); I10 Essential (primary) hypertension; E11.9 Type 2 diabetes mellitus without complications; I25.2 Old myocardial infarction; F17.210 Nicotine dependence, cigarettes, uncomplicated; Z79.899 Other long term (current) drug therapy
CPT/HCPCS: 74177; 80053; 83605; 85025; 96365; 96368; 96375; 99284; J1956; J2405; J3010; Q9967; 36415